=== PATIENT | female | born 1990 ===

== ENCOUNTER 2021-02-15 10:23 | Inpatient (IN) | payer BC ==
[2021-02-15] MEDS ORDERED: Sodium Chloride 0.9% 10 ML Syringe FLUSH PRN (11:52)
[2021-02-15] MEDS ORDERED: Sodium Chloride 0.9% 2.5 ML Syringe FLUSH PRN (11:52)
[2021-02-15] MEDS ORDERED: Ketorolac 30 MG/ML SDV IVPUSH ONE (11:52)
[2021-02-15] MEDS ORDERED: REMDESIVIR 200 MG in Sodium Chloride 0.9% 250 ML IV ONE ×2 (12:03→12:30)
[2021-02-15] MEDS ORDERED: Dexamethasone 10 MG/ML SDV IVPUSH ONE (12:03)
--- NOTE | 2021-02-15 12:08 | EDM.PDOC ---
ED HPI GENERAL MEDICAL PROBLEM - General Chief Complaint: Respiratory Problem Stated Complaint: SOB,FEVER Time Seen by Provider: 02/15/21 11:28 Source of Information: Reports: Patient History Limitations: Reports: No Limitations - History of Present Illness INITIAL COMMENTS - FREE TEXT/NARRATIVE: HISTORY AND PHYSICAL: History of present illness: Patient is a 30-year-old female who presents to the emergency room with complaints of increased shortness of breath, fever, headache and fatigue since being diagnosed with COVID-19 ten days ago (02/05/21). She states she has been taking Tylenol and [id number] cough and cold medications for her headache but feels she is not getting much relief. Patient denies any chills, change in vision, syncope or near syncope. Denies any chest pain, back pain, abdominal pain, nausea, vomiting, diarrhea, constipation or dysuria. Has not noted any blood in urine or stool. Patient has been eating and drinking appropriately. NO concern for . No recent travel or sick contacts. Review of systems: As per history of present illness and below otherwise all systems reviewed and negative. Past medical history: As per history of present illness and as reviewed below otherwise noncontributory. Surgical history: As per history of present illness and as reviewed below otherwise noncontributory. Social history: See social history for further information Family history: As per history of present illness and as reviewed below otherwise noncontributory. Physical exam: General: Well developed and well nourished 30 year old female. Alert and orientated x 3. Nontoxic in appearance and in no acute distress. Vital signs are stable and have been reviewed by me. Nursing notes were reviewed. HEENT: Atraumatic, normocephalic, pupils equal and reactive bilaterally, negative for conjunctival pallor or scleral icterus, mucous membranes moist, nontender, trachea midline. No drooling or trismus noted. No meningeal signs. No hot potato voice noted. Lungs: Diminished with poor air exchange to auscultation bilaterally. Chest nontender. Normal work of breathing, no accessory muscles used. Heart: S1S2, regular rate and rhythm without overt murmur, gallops, or rubs. No JVD. No peripheral edema Abdomen: Soft, nondistended, nontender. Normoactive bowel sounds. Negative for masses or costovertebral tenderness. Skin: Intact, warm, dry. No lesions or rashes noted. Hematologic: No petechiae or purpra. Mucosa appropriate color and normal nail bed color and refill. Extremities: Atraumatic, moves all extremities per self without difficulty or deficits, negative for cords or calf pain. Neurovascular unremarkable. Neuro: Awake, alert, oriented. Cranial nerves II through XII unremarkable. Cerebellum unremarkable. Motor and sensory unremarkable throughout. Exam nonfocal. Psychiatric: Mood and affect are appropriate. Normal thought process. Answering questions appropriately. Please note that the patient was seen and evaluated during the 2019 SARS-CoV-2 novel coronavirus pandemic period. Community viral transmission is ongoing at time of this encounter and the emergency department is operating under pandemic response procedures. Medical Decision Making: Patient is a 30-year-old female who presents to the emergency room with known COVID-19 who complains of subjective fever, headache, shortness of breath and fatigue. She states she has had symptoms for approximately 10 to 12 days and is not feeling any improvement. Upon arrival her oxygen saturation is 85% requiring 5 L per nasal cannula to be above 90%. I did talk with the patient about her expectations and that she would likely need admission for oxygen does not improve. Patient is aware and agreeable to plan of care. We will do basic lab work and blood cultures/lactate as she does fall and or sepsis criteria. Did have to switch patient to high flow oxygen and she was not satting above 90% on the nasal cannula. Chest x-ray shows shallow inspiration and patchy rounded infiltrate scattered throughout both lungs. Patient does have an elevated blood sugar of 294, she states she has no history of diabetes we will add a hemoglobin A1c onto her lab work. Patient does have an elevated D-dimer which could be due to the COVID-19 infection but will do a PE study. Spoke with Dr. Venegas, hospitalist about patient who is agreeable to keeping her for further care and management. I have talked with the patient about today's findings, in addition to providing specific details for plan of care. Patient states she does feel improved with the high flow oxygen and is requesting a meal tray. VSS. Results of CT scan pending. CT chest shows suboptimal opacification of the pulmonary arterial tree, limiting assessment of the distal branches. No central pulmonary embolism. Advanced bilateral pulmonary disease with pattern compatible with COVID-19 pneumonia. Hepatic steatosis and splenomegaly. Diagnostics: CBC, CMP, D.Dimer, UA, HCGU, CXR, Lactate, BC x 2 Therapeutics: Remdesivir, Decadron Impression: Hypoxia COVID19 Plan: Inpatient admission with telemetry Definitive disposition and diagnosis as appropriate pending reevaluation and delonte juárez of above. Headache Pain Score (Numeric/FACES): 10 - Related Data Allergies Allergy/AdvReac Type Severity Reaction Status Date / Time No Known Allergies Allergy Verified 02/15/21 15:36 Home Meds: Home Meds . [No Known Home Meds] 02/15/21 [History] ED ROS GENERAL - Review of Systems Review Of Systems: Comprehensive ROS is negative, except as noted in HPI. ED EXAM, GENERAL - Physical Exam Exam: See Below (See dictation) Course - Vital Signs Last Recorded V/S: Last Vital Signs Temp 97.2 F 02/15/21 15:35 Pulse 98 02/15/21 15:35 Resp 22 H 02/15/21 15:35 BP 108/66 02/15/21 15:35 Pulse Ox 93 L 02/15/21 17:43 - Orders/Labs/Meds Orders: Active Orders 24 hr Category Date Time Status Oxygen Therapy, ED [RC] ASDIRECTED Care 02/15/21 12:03 Active CULTURE BLOOD [BC] Stat Lab 02/15/21 12:02 Received CULTURE BLOOD [BC] Stat Lab 02/15/21 12:29 Received HCG QUALITATIVE,URINE [URCHEM] Stat Lab 02/15/21 11:53 Ordered UA RFX ITALIA AND CULT IF INDIC [URIN] Stat Lab 02/15/21 11:53 Ordered Sodium Chloride 0.9% [Saline Flush] Med 02/15/21 11:52 Active 10 ml FLUSH ASDIRECTED PRN Sodium Chloride 0.9% [Saline Flush] Med 02/15/21 11:52 Active 2.5 ml FLUSH ASDIRECTED PRN Blood Culture x2 Reflex Set [OM.PC] Stat Oth 02/15/21 11:54 Ordered Saline Lock Insert [OM.PC] Stat Oth 02/15/21 11:52 Ordered Medication Orders Albuterol/Ipratropium (Albuterol/Ipratropium 4 Gm Inhalation [place]) 0 gm INH QID JAYMIE Baricitinib (Baricitinib 2 Mg Tab) 4 mg PO Q24H JAYMIE Last Admin: 02/15/21 16:43 Dose: 4 mg Documented by: LUX Benzonatate (Benzonatate 100 Mg Cap) 100 mg PO Q6H PRN PRN Reason: Cough Dexamethasone (Dexamethasone 4 Mg Tab) 6 mg PO Q24H [facility] Enoxaparin Sodium (Enoxaparin 40 Mg/0.4 Ml Syringe) 40 mg SUBCUT Q24H [facility] Last Admin: 02/15/21 16:43 Dose: 40 mg Documented by: LUX Remdesivir 100 mg/ Sodium (Chloride) 100 mls @ 100 mls/hr IV Q24H [facility] Stop: 02/19/21 12:59 Sodium Chloride (Sodium Chloride 0.9% 10 Ml Syringe) 10 ml FLUSH ASDIRECTED PRN PRN Reason: Keep Vein Open Last Admin: 02/15/21 12:31 Dose: 10 ml Documented by: ZAHRA Sodium Chloride (Sodium Chloride 0.9% 2.5 Ml Syringe) 2.5 ml FLUSH ASDIRECTED PRN PRN Reason: Keep Vein Open Last Admin: 02/15/21 12:31 Dose: 2.5 ml Documented by: ZAHRA Labs: Laboratory Tests 02/15/21 02/15/21 02/15/21 Range/Units 12:02 12:02 12:02 WBC 8.13 (4.0-11.0) K/uL RBC 4.61 (4.30-5.90) M/uL Hgb 14.5 (12.0-16.0) g/dL Hct 41.7 (36.0-46.0) % MCV 90.5 (80.0-98.0) fL MCH 31.5 (27.0-32.0) pg MCHC 34.8 (31.0-37.0) g/dL RDW Std Deviation 41.6 (28.0-62.0) fl RDW Coeff of Arcenio 13 (11.0-15.0) % Plt Count 226 (150-400) K/uL MPV 9.70 (7.40-12.00) fL Neut % (Auto) 86.2 H (48.0-80.0) % Lymph % (Auto) 10.1 L (16.0-40.0) % [place] % (Auto) 3.6 (0.0-15.0) % Eos % (Auto) 0.0 (0.0-7.0) % Baso % (Auto) 0.1 (0.0-1.5) % Neut # (Auto) 7.0 H (1.4-5.7) K/uL Lymph # (Auto) 0.8 (0.6-2.4) K/uL [place] # (Auto) 0.3 (0.0-0.8) K/uL Eos # (Auto) 0.0 (0.0-0.7) K/uL Baso # (Auto) 0.0 (0.0-0.1) K/uL Nucleated RBC % 0.0 /100WBC Nucleated RBCs # 0 K/uL D-Dimer, Quantitative 1.26 H (0.0-0.50) mg/L FEU Sodium 132 L (136-145) mmol/L Potassium 3.6 (3.5-5.1) mmol/L Chloride 92 L (98-107) mmol/L Carbon Dioxide 27.4 (21.0-32.0) mmol/L BUN 12 (7.0-18.0) mg/dL Creatinine 1.0 (0.6-1.0) mg/dL Est Cr Clr Drug Dosing 84.49 mL/min Estimated GFR (MDRD) > 60.0 ml/min Glucose 294 H (74-106) mg/dL Hemoglobin A1c (4.5 - 6.2) % Lactic Acid (0.4-2.0) mmol/L Calcium 8.7 (8.5-10.1) mg/dL Total Bilirubin 0.6 (0.2-1.0) mg/dL AST 50 H (15-37) IU/L ALT 48 (14-63) IU/L Alkaline Phosphatase 61 (46-116) U/L C-Reactive Protein (0.00-0.90) mg/dL Total Protein 8.5 H (6.4-8.2) g/dL Albumin 2.7 L (3.4-5.0) g/dL Globulin 5.8 H (2.6-4.0) g/dL Albumin/Globulin Ratio 0.5 L (0.9-1.6) 02/15/21 02/15/21 02/15/21 Range/Units 12:02 12:02 12:02 WBC (4.0-11.0) K/uL RBC (4.30-5.90) M/uL Hgb (12.0-16.0) g/dL Hct (36.0-46.0) % MCV (80.0-98.0) fL MCH (27.0-32.0) pg MCHC (31.0-37.0) g/dL RDW Std Deviation (28.0-62.0) fl RDW Coeff of Arcenio (11.0-15.0) % Plt Count (150-400) K/uL MPV (7.40-12.00) fL Neut % (Auto) (48.0-80.0) % Lymph % (Auto) (16.0-40.0) % [place] % (Auto) (0.0-15.0) % Eos % (Auto) (0.0-7.0) % Baso % (Auto) (0.0-1.5) % Neut # (Auto) (1.4-5.7) K/uL Lymph # (Auto) (0.6-2.4) K/uL [place] # (Auto) (0.0-0.8) K/uL Eos # (Auto) (0.0-0.7) K/uL Baso # (Auto) (0.0-0.1) K/uL Nucleated RBC % /100WBC Nucleated RBCs # K/uL D-Dimer, Quantitative (0.0-0.50) mg/L FEU Sodium (136-145) mmol/L Potassium (3.5-5.1) mmol/L Chloride (98-107) mmol/L Carbon Dioxide (21.0-32.0) mmol/L BUN (7.0-18.0) mg/dL Creatinine (0.6-1.0) mg/dL Est Cr Clr Drug Dosing mL/min Estimated GFR (MDRD) ml/min Glucose (74-106) mg/dL Hemoglobin A1c 11.0 H (4.5 - 6.2) % Lactic Acid 1.8 (0.4-2.0) mmol/L Calcium (8.5-10.1) mg/dL Total Bilirubin (0.2-1.0) mg/dL AST (15-37) IU/L ALT (14-63) IU/L Alkaline Phosphatase (46-116) U/L C-Reactive Protein 28.00 H (0.00-0.90) mg/dL Total Protein (6.4-8.2) g/dL Albumin (3.4-5.0) g/dL Globulin (2.6-4.0) g/dL Albumin/Globulin Ratio (0.9-1.6) Meds: Medications Generic Name Dose Route Start Last Admin Trade Name Sary PRN Reason Stop Dose Admin Albuterol/Ipratropium 0 gm 02/15/21 18:00 Albuterol/Ipratropium 4 Gm Inhalation [place] INH QID JAYMIE Baricitinib 4 mg 02/15/21 15:45 02/15/21 16:43 Baricitinib 2 Mg Tab PO 4 mg Q24H JAYMIE Administration Benzonatate 100 mg 02/15/21 15:42 Benzonatate 100 Mg Cap PO Q6H PRN Cough Dexamethasone 6 mg 02/16/21 15:45 Dexamethasone 4 Mg Tab PO Q24H JAYMIE Enoxaparin Sodium 40 mg 02/15/21 15:45 02/15/21 16:43 Enoxaparin 40 Mg/0.4 Ml Syringe SUBCUT 40 mg Q24H JAYMIE Administration Remdesivir 100 mg/ Sodium 100 mls @ 100 mls/hr 02/16/21 12:00 Chloride IV 02/19/21 12:59 Q24H JAYMIE Sodium Chloride 10 ml 02/15/21 11:52 02/15/21 12:31 Sodium Chloride 0.9% 10 Ml Syringe FLUSH 10 ml ASDIRECTED PRN Administration Keep Vein Open Sodium Chloride 2.5 ml 02/15/21 11:52 02/15/21 12:31 Sodium Chloride 0.9% 2.5 Ml Syringe FLUSH 2.5 ml ASDIRECTED PRN Administration Keep Vein Open Discontinued Medications Generic Name Dose Route Start Last Admin Trade Name Sary PRN Reason Stop Dose Admin Dexamethasone 6 mg 02/15/21 12:03 02/15/21 12:30 Dexamethasone 10 Mg/Ml Sdv IVPUSH 02/15/21 12:04 6 mg ONETIME ONE Administration Remdesivir 200 mg/ Sodium 250 mls @ 250 mls/hr 02/15/21 12:03 02/15/21 14:02 Chloride IV 02/15/21 12:04 Not Given ONETIME ONE Remdesivir 200 mg/ Sodium 250 mls @ 250 mls/hr 02/15/21 12:30 02/15/21 14:01 Chloride IV 02/15/21 13:29 250 mls/hr ONETIME ONE Administration Iopamidol 100 ml 02/15/21 15:47 02/15/21 15:48 Iopamidol 755 Mg/Ml 500 Ml Multipack Bottle IVPUSH 02/15/21 15:48 100 ml ONETIME ONE Administration Ketorolac Tromethamine 30 mg 02/15/21 11:52 02/15/21 12:31 Ketorolac 30 Mg/Ml Sdv IVPUSH 02/15/21 11:53 30 mg ONETIME ONE Administration Departure - Departure Time of Disposition: 18:05 Disposition: Admitted As Inpatient 68 Clinical Impression: Hypoxia, COVID-19 - Discharge Information Sepsis Event Note (ED) - Focused Exam Vital Signs: Vital Signs Temp Pulse Resp BP Pulse Ox 02/15/21 12:13 115 H 16 118/75 89 L 02/15/21 12:07 98.7 F 118 H 17 118/75 88 L - My Orders Last 24 Hours: My Active Orders 02/15/21 11:52 Sodium Chloride 0.9% [Saline Flush] 10 ml FLUSH ASDIRECTED PRN Sodium Chloride 0.9% [Saline Flush] 2.5 ml FLUSH ASDIRECTED PRN Saline Lock Insert [OM.PC] Stat 02/15/21 11:53 HCG QUALITATIVE,URINE [URCHEM] Stat UA RFX ITALIA AND CULT IF INDIC [URIN] Stat 02/15/21 11:54 Blood Culture x2 Reflex Set [OM.PC] Stat 02/15/21 12:02 CULTURE BLOOD [BC] Stat 02/15/21 12:03 Oxygen Therapy, ED [RC] ASDIRECTED 02/15/21 12:29 CULTURE BLOOD [BC] Stat - Assessment/Plan Last 24 Hours: My Active Orders 02/15/21 11:52 Sodium Chloride 0.9% [Saline Flush] 10 ml FLUSH ASDIRECTED PRN Sodium Chloride 0.9% [Saline Flush] 2.5 ml FLUSH ASDIRECTED PRN Saline Lock Insert [OM.PC] Stat 02/15/21 11:53 HCG QUALITATIVE,URINE [URCHEM] Stat UA RFX ITALIA AND CULT IF INDIC [URIN] Stat 02/15/21 11:54 Blood Culture x2 Reflex Set [OM.PC] Stat 02/15/21 12:02 CULTURE BLOOD [BC] Stat 02/15/21 12:03 Oxygen Therapy, ED [RC] ASDIRECTED 02/15/21 12:29 CULTURE BLOOD [BC] Stat
[2021-02-15 12:52] LABS: BLOOD UREA NITROGEN,BUN 12 mg/dL (7.0-18.0); CARBON DIOXIDE,CO2 27.4 mmol/L (21.0-32.0); CHLORIDE,CL 92 mmol/L (98-107); GLUCOSE RANDOM 294 mg/dL (74-106); POTASSIUM,K 3.6 mmol/L (3.5-5.1); SODIUM,NA 132 mmol/L (136-145)
--- NOTE | 2021-02-15 12:59 | CR ---
INDICATION: SOB. TECHNIQUE: Upright portable AP image of the chest. COMPARISON: None. FINDINGS: Shallow inspiration and patchy rounded infiltrates scattered throughout both lungs. No pleural effusion. Heart size within normal limits. Pulmonary veins cannot be assessed due to the shallow inspiration. No significant bony abnormality. IMPRESSION: Shallow inspiration and patchy rounded infiltrate scattered throughout both lungs. Dictated by Kal Villalba MD @ 02/15/2021 12:57:50 PM (Electronically Signed)
--- NOTE | 2021-02-15 15:41 | CT ---
INDICATION: COVID, hypoxia, elevated D-dimer TECHNIQUE: Contrast enhanced axial CT imaging through the chest, optimized for assessment of the pulmonary arterial tree. 100 mL Isovue 370 contrast agent was administered intravenously. Sagittal and coronal reconstructions are provided. COMPARISON: None FINDINGS: There is suboptimal opacification of the pulmonary arterial tree, limiting assessment of distal branches. There is no evidence of central pulmonary embolism. The main pulmonary artery is nonenlarged. The heart is normal in size. There is no pericardial effusion. The thoracic aorta is normal in caliber. There are confluent pulmonary infiltrates throughout both lungs, with greater involvement of the dependent lower lobes. Findings are compatible with changes of COVID-19 pneumonia. There is no pleural effusion or pneumothorax. Mild mediastinal lymphadenopathy is presumably reactive. The thoracic osseous structures are unremarkable. There is diffusely decreased attenuation of the visualized liver, consistent with steatosis. The spleen is enlarged. IMPRESSION: 1. Suboptimal opacification of the pulmonary arterial tree, limiting assessment of the distal branches. No central pulmonary embolism. 2. Advanced bilateral pulmonary disease with pattern compatible with COVID-19 pneumonia. 3. Hepatic steatosis and splenomegaly. Please note that all CT scans at this facility use dose modulation, iterative reconstruction, and/or weight-based dosing when appropriate to reduce radiation dose to as low as reasonably achievable. Dictated by Shukri Hernández MD @ 02/15/2021 3:39:28 PM (Electronically Signed)
[2021-02-15] MEDS ORDERED: Benzonatate 100 MG Cap PO PRN (15:42)
[2021-02-15] MEDS ORDERED: Iopamidol 755 MG/ML 500 ML Multipack Bottle IVPUSH ONE (15:47)
--- NOTE | 2021-02-15 16:20 | PCM.HP.2 ---
H&P History of Present Illness - General Date of Service: 02/15/21 Admit Problem/Dx: Admission Diagnosis/Problem Admission Diagnosis/Problem Hypoxia - History of Present Illness Initial Comments - Free Text/Narative: 30 yo female who presents with ten days of cough, fevers, and shortness of breath. She tested positive for COVID last week. She was noted to be hypoxic in the ED requiring high flow NC. Headache Pain Score (Numeric/FACES): 10 - Related Data Allergies/Adverse Reactions: Allergies Allergy/AdvReac Type Severity Reaction Status Date / Time No Known Allergies Allergy Verified 02/15/21 15:36 Home Medications: Home Meds . [No Known Home Meds] 02/15/21 [History] Past Medical History - Past Health History Medical/Surgical History: Denies Medical/Surgical History Social & Family History - Family History Family Medical History: No Pertinent Family History - Recreational Drug Use Recreational Drug Use: No H&P Review of Systems - Review of Systems: Review Of Systems: Comprehensive ROS is negative, except as noted in HPI. Exam - Exam Exam: See Below - Vital Signs Vital Signs: Last Vital Signs Temp 36.2 C 02/15/21 15:35 Pulse 98 02/15/21 15:35 Resp 22 H 02/15/21 15:35 BP 108/66 02/15/21 15:35 Pulse Ox 92 L 02/15/21 15:35 Weight: 117.435 kg - Exam General: Alert, Oriented. No: Mild Distress (appears comfortable on HHFNC) Lungs: Clear to Auscultation, Normal Respiratory Effort Cardiovascular: Regular Rate, Regular Rhythm GI/Abdominal Exam: Normal Bowel Sounds, Soft, Non-Tender Extremities: Non-Tender, No Pedal Edema Skin: Warm, Dry, Intact Neurological: No: Focal Deficit - Patient Data Lab Results Last 24 hrs: Laboratory Results - last 24 hr 02/15/21 02/15/21 02/15/21 Range/Units 12:02 12:02 12:02 WBC 8.13 (4.0-11.0) K/uL RBC 4.61 (4.30-5.90) M/uL Hgb 14.5 (12.0-16.0) g/dL Hct 41.7 (36.0-46.0) % MCV 90.5 (80.0-98.0) fL MCH 31.5 (27.0-32.0) pg MCHC 34.8 (31.0-37.0) g/dL RDW Std Deviation 41.6 (28.0-62.0) fl RDW Coeff of Arcenio 13 (11.0-15.0) % Plt Count 226 (150-400) K/uL MPV 9.70 (7.40-12.00) fL Neut % (Auto) 86.2 H (48.0-80.0) % Lymph % (Auto) 10.1 L (16.0-40.0) % [place] % (Auto) 3.6 (0.0-15.0) % Eos % (Auto) 0.0 (0.0-7.0) % Baso % (Auto) 0.1 (0.0-1.5) % Neut # (Auto) 7.0 H (1.4-5.7) K/uL Lymph # (Auto) 0.8 (0.6-2.4) K/uL [place] # (Auto) 0.3 (0.0-0.8) K/uL Eos # (Auto) 0.0 (0.0-0.7) K/uL Baso # (Auto) 0.0 (0.0-0.1) K/uL Nucleated RBC % 0.0 /100WBC Nucleated RBCs # 0 K/uL D-Dimer, Quantitative 1.26 H (0.0-0.50) mg/L FEU Sodium 132 L (136-145) mmol/L Potassium 3.6 (3.5-5.1) mmol/L Chloride 92 L (98-107) mmol/L Carbon Dioxide 27.4 (21.0-32.0) mmol/L BUN 12 (7.0-18.0) mg/dL Creatinine 1.0 (0.6-1.0) mg/dL Est Cr Clr Drug Dosing 84.49 mL/min Estimated GFR (MDRD) > 60.0 ml/min Glucose 294 H (74-106) mg/dL Hemoglobin A1c (4.5 - 6.2) % Lactic Acid (0.4-2.0) mmol/L Calcium 8.7 (8.5-10.1) mg/dL Total Bilirubin 0.6 (0.2-1.0) mg/dL AST 50 H (15-37) IU/L ALT 48 (14-63) IU/L Alkaline Phosphatase 61 (46-116) U/L C-Reactive Protein (0.00-0.90) mg/dL Total Protein 8.5 H (6.4-8.2) g/dL Albumin 2.7 L (3.4-5.0) g/dL Globulin 5.8 H (2.6-4.0) g/dL Albumin/Globulin Ratio 0.5 L (0.9-1.6) 02/15/21 02/15/21 02/15/21 Range/Units 12:02 12:02 12:02 WBC (4.0-11.0) K/uL RBC (4.30-5.90) M/uL Hgb (12.0-16.0) g/dL Hct (36.0-46.0) % MCV (80.0-98.0) fL MCH (27.0-32.0) pg MCHC (31.0-37.0) g/dL RDW Std Deviation (28.0-62.0) fl RDW Coeff of Arcenio (11.0-15.0) % Plt Count (150-400) K/uL MPV (7.40-12.00) fL Neut % (Auto) (48.0-80.0) % Lymph % (Auto) (16.0-40.0) % [place] % (Auto) (0.0-15.0) % Eos % (Auto) (0.0-7.0) % Baso % (Auto) (0.0-1.5) % Neut # (Auto) (1.4-5.7) K/uL Lymph # (Auto) (0.6-2.4) K/uL [place] # (Auto) (0.0-0.8) K/uL Eos # (Auto) (0.0-0.7) K/uL Baso # (Auto) (0.0-0.1) K/uL Nucleated RBC % /100WBC Nucleated RBCs # K/uL D-Dimer, Quantitative (0.0-0.50) mg/L FEU Sodium (136-145) mmol/L Potassium (3.5-5.1) mmol/L Chloride (98-107) mmol/L Carbon Dioxide (21.0-32.0) mmol/L BUN (7.0-18.0) mg/dL Creatinine (0.6-1.0) mg/dL Est Cr Clr Drug Dosing mL/min Estimated GFR (MDRD) ml/min Glucose (74-106) mg/dL Hemoglobin A1c 11.0 H (4.5 - 6.2) % Lactic Acid 1.8 (0.4-2.0) mmol/L Calcium (8.5-10.1) mg/dL Total Bilirubin (0.2-1.0) mg/dL AST (15-37) IU/L ALT (14-63) IU/L Alkaline Phosphatase (46-116) U/L C-Reactive Protein 28.00 H (0.00-0.90) mg/dL Total Protein (6.4-8.2) g/dL Albumin (3.4-5.0) g/dL Globulin (2.6-4.0) g/dL Albumin/Globulin Ratio (0.9-1.6) Result Diagrams: 02/15/21 12:02 02/15/21 12:02 Sepsis Event Note - Evaluation Sepsis Screening Result: No Definite Risk - Focused Exam Vital Signs: Vital Signs Temp Pulse Resp BP Pulse Ox 02/15/21 15:35 36.2 C 98 22 H 108/66 92 L 02/15/21 14:13 82 17 154/80 H 99 02/15/21 14:01 111 H 14 115/64 94 L 02/15/21 12:52 110 H 18 108/68 94 L 02/15/21 12:13 115 H 16 118/75 89 L 02/15/21 12:07 37.1 C 118 H 17 118/75 88 L - Problem List (1) COVID-19 SNOMED Code(s): 455841395 ICD Code: U07.1 - COVID-19 Status: Acute Current Visit: Yes Problem List Initiated/Reviewed/Updated: Yes Orders Last 24hrs: Active Orders 24 hr Category Date Time Status Admission Status [Patient Status] [ADT] Stat ADT 02/15/21 12:29 Active Cardiac Monitoring [RC] . DIRECTED Care 02/15/21 12:29 Active Oxygen Therapy [RC] PRN Care 02/15/21 15:43 Active Oxygen Therapy, ED [RC] ASDIRECTED Care 02/15/21 12:03 Active RT Post Treatment Assessment [RC] Click to Edit Care 02/15/21 15:42 Active RT Pre-Treatment Assessment [RC] Click to Edit Care 02/15/21 15:42 Active Up ad [place]is [RC] ASDIRECTED Care 02/15/21 15:43 Active VTE/DVT Education [RC] PER UNIT ROUTINE Care 02/15/21 15:43 Active Vital Signs [RC] Q4H Care 02/15/21 15:43 Active Regular Diet [DIET] Diet 02/15/21 Breakfast Active CBC WITH AUTO DIFF [HEME] AM Lab 02/16/21 05:11 Ordered CBC WITH AUTO DIFF [HEME] AM Lab 02/17/21 05:11 Ordered CBC WITH AUTO DIFF [HEME] AM Lab 02/18/21 05:11 Ordered CBC WITH AUTO DIFF [HEME] AM Lab 02/19/21 05:11 Ordered CBC WITH AUTO DIFF [HEME] AM Lab 02/20/21 05:11 Ordered COMPREHENSIVE METABOLIC PN,CMP [CHEM] AM Lab 02/16/21 05:11 Ordered COMPREHENSIVE METABOLIC PN,CMP [CHEM] AM Lab 02/17/21 05:11 Ordered COMPREHENSIVE METABOLIC PN,CMP [CHEM] AM Lab 02/18/21 05:11 Ordered COMPREHENSIVE METABOLIC PN,CMP [CHEM] AM Lab 02/19/21 05:11 Ordered COMPREHENSIVE METABOLIC PN,CMP [CHEM] AM Lab 02/20/21 05:11 Ordered CULTURE BLOOD [BC] Stat Lab 02/15/21 12:02 Received CULTURE BLOOD [BC] Stat Lab 02/15/21 12:29 Received HCG QUALITATIVE,URINE [URCHEM] Stat Lab 02/15/21 11:53 Ordered UA RFX ITALIA AND CULT IF INDIC [URIN] Stat Lab 02/15/21 11:53 Ordered Albuterol/Ipratropium [Combivent Respimat] Med 02/15/21 18:00 Ordered 1 gm INH QID Baricitinib [Olumiant] Med 02/15/21 15:45 Ordered 4 mg PO Q24H Benzonatate [Tessalon Perles] Med 02/15/21 15:42 Ordered 100 mg PO Q6H PRN Enoxaparin [Lovenox] Med 02/15/21 15:45 Ordered 40 mg SUBCUT Q24H Remdesivir 100 mg Med 02/16/21 12:00 Ordered Sodium Chloride 0.9% [Normal Saline AdvBag] 100 ml IV Q24H Sodium Chloride 0.9% [Saline Flush] Med 02/15/21 11:52 Active 10 ml FLUSH ASDIRECTED PRN Sodium Chloride 0.9% [Saline Flush] Med 02/15/21 11:52 Active 2.5 ml FLUSH ASDIRECTED PRN dexAMETHasone Med 02/16/21 15:45 Ordered 6 mg PO Q24H Blood Culture x2 Reflex Set [OM.PC] Stat Oth 02/15/21 11:54 Ordered Saline Lock Insert [OM.PC] Stat Oth 02/15/21 11:52 Ordered Resuscitation Status Routine Resus Stat 02/15/21 15:43 Ordered Medication Orders Albuterol/Ipratropium (Albuterol/Ipratropium 4 Gm Inhalation [place]) 1 gm INH QID JAYMIE Baricitinib (Baricitinib 2 Mg Tab) 4 mg PO Q24H JAYMIE Benzonatate (Benzonatate 100 Mg Cap) 100 mg PO Q6H PRN PRN Reason: Cough Dexamethasone (Dexamethasone 4 Mg Tab) 6 mg PO Q24H JAYMIE Enoxaparin Sodium (Enoxaparin 40 Mg/0.4 Ml Syringe) 40 mg SUBCUT Q24H JAYMIE Remdesivir 100 mg/ Sodium (Chloride) 100 mls @ 100 mls/hr IV Q24H [facility] Stop: 02/19/21 12:59 Sodium Chloride (Sodium Chloride 0.9% 10 Ml Syringe) 10 ml FLUSH ASDIRECTED PRN PRN Reason: Keep Vein Open Last Admin: 02/15/21 12:31 Dose: 10 ml Documented by: ZAHRA Sodium Chloride (Sodium Chloride 0.9% 2.5 Ml Syringe) 2.5 ml FLUSH ASDIRECTED PRN PRN Reason: Keep Vein Open Last Admin: 02/15/21 12:31 Dose: 2.5 ml Documented by: ZAHRA Assessment/Plan Comment:: 30 yo female admitted for COVID-19 pneumonia with acute hypoxic respiratory failure Hypoxia: on HHFNC 40 L at 75% O2 COVID-19: Treating with Remdesivir, Dexamethason, and patient consented to use of barcitinib lovenox for DVT prophylaxis.
[2021-02-15] MEDS: Enoxaparin 40 MG/0.4 ML Syringe SUBCUT SCH (16:43)
[2021-02-15] MEDS: Albuterol/Ipratropium 4 GM Inhalation Spray INH SCH ×2 (18:32→23:33)
[2021-02-15] MEDS ORDERED: 50% Dextrose in Water 50 ML Syringe IVPUSH PRN ×2 (20:49→21:38)
[2021-02-15] MEDS ORDERED: Glucagon,Human Recombinant 1 MG Vial IM PRN ×2 (20:49→21:38)
[2021-02-15] MEDS ORDERED: Insulin Aspart 100 Units/ML 3 ML Pen ONE (21:43)
[2021-02-15] MEDS ORDERED: Insulin Aspart 100 Units/ML 3 ML Pen SUBCUT ONE (21:50)
[2021-02-16] MEDS: Insulin Aspart 100 Units/ML 3 ML Pen SUBCUT SCH ×4 (00:34→18:11)
[2021-02-16] MEDS: Albuterol/Ipratropium 4 GM Inhalation Spray INH SCH ×4 (06:52→23:35)
[2021-02-16 08:07] LABS: BLOOD UREA NITROGEN,BUN 17 mg/dL (7.0-18.0); CARBON DIOXIDE,CO2 28.7 mmol/L (21.0-32.0); CHLORIDE,CL 97 mmol/L (98-107); GLUCOSE RANDOM 329 mg/dL (74-106); POTASSIUM,K 3.6 mmol/L (3.5-5.1); SODIUM,NA 136 mmol/L (136-145)
[2021-02-16] MEDS: REMDESIVIR 100 MG in Sodium Chloride 0.9% 100 ML IV SCH (12:30)
--- NOTE | 2021-02-16 15:54 | PCM.PN ---
- General Info Date of Service: 02/16/21 - Review of Systems Systems Review Comment:: feeling better, shortness of breath improving - Patient Data Vitals - Most Recent: Last Vital Signs Temp 36.4 C 02/16/21 11:00 Pulse 96 02/16/21 11:00 Resp 18 02/16/21 11:00 BP 109/63 02/16/21 11:00 Pulse Ox 89 L 02/16/21 11:00 Weight - Most Recent: 117.435 kg I&O - Last 24 Hours: Intake & Output 02/16/21 02/16/21 02/16/21 06:59 14:59 22:59 Intake Total 840 Output Total 650 Balance 190 Lab Results Last 24 Hours: Laboratory Results - last 24 hr 02/15/21 02/15/21 02/15/21 Range/Units 21:10 21:10 21:23 WBC (4.0-11.0) K/uL RBC (4.30-5.90) M/uL Hgb (12.0-16.0) g/dL Hct (36.0-46.0) % MCV (80.0-98.0) fL MCH (27.0-32.0) pg MCHC (31.0-37.0) g/dL RDW Std Deviation (28.0-62.0) fl RDW Coeff of Arcenio (11.0-15.0) % Plt Count (150-400) K/uL MPV (7.40-12.00) fL Neut % (Auto) (48.0-80.0) % Lymph % (Auto) (16.0-40.0) % [place] % (Auto) (0.0-15.0) % Eos % (Auto) (0.0-7.0) % Baso % (Auto) (0.0-1.5) % Neut # (Auto) (1.4-5.7) K/uL Lymph # (Auto) (0.6-2.4) K/uL [place] # (Auto) (0.0-0.8) K/uL Eos # (Auto) (0.0-0.7) K/uL Baso # (Auto) (0.0-0.1) K/uL Nucleated RBC % /100WBC Nucleated RBCs # K/uL Sodium (136-145) mmol/L Potassium (3.5-5.1) mmol/L Chloride (98-107) mmol/L Carbon Dioxide (21.0-32.0) mmol/L BUN (7.0-18.0) mg/dL Creatinine (0.6-1.0) mg/dL Est Cr Clr Drug Dosing mL/min Estimated GFR (MDRD) ml/min Glucose (74-106) mg/dL POC Glucose 440 H* (70-99) mg/dL Calcium (8.5-10.1) mg/dL Total Bilirubin (0.2-1.0) mg/dL AST (15-37) IU/L ALT (14-63) IU/L Alkaline Phosphatase (46-116) U/L Total Protein (6.4-8.2) g/dL Albumin (3.4-5.0) g/dL Globulin (2.6-4.0) g/dL Albumin/Globulin Ratio (0.9-1.6) Urine Color YELLOW Urine Appearance SLT CLOUDY Urine pH 6.0 (5.0-8.0) Ur Specific [place] 1.020 (1.001-1.035) Urine Protein 100 H (NEGATIVE) mg/dL Urine Glucose (UA) >=1000 (NEGATIVE) mg/dL Urine Ketones 15 H (NEGATIVE) mg/dL Urine Occult Blood TRACE-INTACT H (NEGATIVE) Urine Nitrite NEGATIVE (NEGATIVE) Urine Bilirubin NEGATIVE (NEGATIVE) Urine Urobilinogen 0.2 (<2.0) EU/dL Ur Leukocyte Esterase NEGATIVE (NEGATIVE) Urine RBC 0-2 (0-2/HPF) Urine WBC 0-2 (0-5/HPF) Ur Epithelial Cells FEW (NONE-FEW) Urine Bacteria FEW (NEGATIVE) Urine HCG, Qual NEGATIVE (NEGATIVE) 02/15/21 02/16/21 02/16/21 Range/Units 23:26 02:38 06:59 WBC 4.61 (4.0-11.0) K/uL RBC 4.32 (4.30-5.90) M/uL Hgb 13.0 (12.0-16.0) g/dL Hct 39.4 (36.0-46.0) % MCV 91.2 (80.0-98.0) fL MCH 30.1 (27.0-32.0) pg MCHC 33.0 (31.0-37.0) g/dL RDW Std Deviation 42.2 (28.0-62.0) fl RDW Coeff of Arcenio 13 (11.0-15.0) % Plt Count 263 (150-400) K/uL MPV 10.10 (7.40-12.00) fL Neut % (Auto) 68.1 (48.0-80.0) % Lymph % (Auto) 25.4 (16.0-40.0) % [place] % (Auto) 6.3 (0.0-15.0) % Eos % (Auto) 0.0 (0.0-7.0) % Baso % (Auto) 0.2 (0.0-1.5) % Neut # (Auto) 3.1 (1.4-5.7) K/uL Lymph # (Auto) 1.2 (0.6-2.4) K/uL [place] # (Auto) 0.3 (0.0-0.8) K/uL Eos # (Auto) 0.0 (0.0-0.7) K/uL Baso # (Auto) 0.0 (0.0-0.1) K/uL Nucleated RBC % 0.0 /100WBC Nucleated RBCs # 0 K/uL Sodium (136-145) mmol/L Potassium (3.5-5.1) mmol/L Chloride (98-107) mmol/L Carbon Dioxide (21.0-32.0) mmol/L BUN (7.0-18.0) mg/dL Creatinine (0.6-1.0) mg/dL Est Cr Clr Drug Dosing mL/min Estimated GFR (MDRD) ml/min Glucose (74-106) mg/dL POC Glucose 383 H 344 H (70-99) mg/dL Calcium (8.5-10.1) mg/dL Total Bilirubin (0.2-1.0) mg/dL AST (15-37) IU/L ALT (14-63) IU/L Alkaline Phosphatase (46-116) U/L Total Protein (6.4-8.2) g/dL Albumin (3.4-5.0) g/dL Globulin (2.6-4.0) g/dL Albumin/Globulin Ratio (0.9-1.6) Urine Color Urine Appearance Urine pH (5.0-8.0) Ur Specific [place] (1.001-1.035) Urine Protein (NEGATIVE) mg/dL Urine Glucose (UA) (NEGATIVE) mg/dL Urine Ketones (NEGATIVE) mg/dL Urine Occult Blood (NEGATIVE) Urine Nitrite (NEGATIVE) Urine Bilirubin (NEGATIVE) Urine Urobilinogen (<2.0) EU/dL Ur Leukocyte Esterase (NEGATIVE) Urine RBC (0-2/HPF) Urine WBC (0-5/HPF) Ur Epithelial Cells (NONE-FEW) Urine Bacteria (NEGATIVE) Urine HCG, Qual (NEGATIVE) 02/16/21 02/16/21 02/16/21 Range/Units 06:59 06:59 11:50 WBC (4.0-11.0) K/uL RBC (4.30-5.90) M/uL Hgb (12.0-16.0) g/dL Hct (36.0-46.0) % MCV (80.0-98.0) fL MCH (27.0-32.0) pg MCHC (31.0-37.0) g/dL RDW Std Deviation (28.0-62.0) fl RDW Coeff of Arcenio (11.0-15.0) % Plt Count (150-400) K/uL MPV (7.40-12.00) fL Neut % (Auto) (48.0-80.0) % Lymph % (Auto) (16.0-40.0) % [place] % (Auto) (0.0-15.0) % Eos % (Auto) (0.0-7.0) % Baso % (Auto) (0.0-1.5) % Neut # (Auto) (1.4-5.7) K/uL Lymph # (Auto) (0.6-2.4) K/uL [place] # (Auto) (0.0-0.8) K/uL Eos # (Auto) (0.0-0.7) K/uL Baso # (Auto) (0.0-0.1) K/uL Nucleated RBC % /100WBC Nucleated RBCs # K/uL Sodium 136 (136-145) mmol/L Potassium 3.6 (3.5-5.1) mmol/L Chloride 97 L (98-107) mmol/L Carbon Dioxide 28.7 (21.0-32.0) mmol/L BUN 17 (7.0-18.0) mg/dL Creatinine 0.8 (0.6-1.0) mg/dL Est Cr Clr Drug Dosing 105.61 mL/min Estimated GFR (MDRD) > 60.0 ml/min Glucose 329 H (74-106) mg/dL POC Glucose 332 H 386 H (70-99) mg/dL Calcium 8.4 L (8.5-10.1) mg/dL Total Bilirubin 0.4 (0.2-1.0) mg/dL AST 30 (15-37) IU/L ALT 34 (14-63) IU/L Alkaline Phosphatase 62 (46-116) U/L Total Protein 7.8 (6.4-8.2) g/dL Albumin 2.3 L (3.4-5.0) g/dL Globulin 5.5 H (2.6-4.0) g/dL Albumin/Globulin Ratio 0.4 L (0.9-1.6) Urine Color Urine Appearance Urine pH (5.0-8.0) Ur Specific [place] (1.001-1.035) Urine Protein (NEGATIVE) mg/dL Urine Glucose (UA) (NEGATIVE) mg/dL Urine Ketones (NEGATIVE) mg/dL Urine Occult Blood (NEGATIVE) Urine Nitrite (NEGATIVE) Urine Bilirubin (NEGATIVE) Urine Urobilinogen (<2.0) EU/dL Ur Leukocyte Esterase (NEGATIVE) Urine RBC (0-2/HPF) Urine WBC (0-5/HPF) Ur Epithelial Cells (NONE-FEW) Urine Bacteria (NEGATIVE) Urine HCG, Qual (NEGATIVE) Viktor Results Last 24 Hours: Microbiology 02/15/21 12:29 Aerobic Blood Culture - Preliminary Blood - Venous - Lab Draw NO GROWTH AFTER 1 DAY Anaerobic Blood Culture - Preliminary NO GROWTH AFTER 1 DAY 02/15/21 12:02 Aerobic Blood Culture - Preliminary Blood - Venous NO GROWTH AFTER 1 DAY Anaerobic Blood Culture - Preliminary NO GROWTH AFTER 1 DAY Med Orders - Current: Current Medications Albuterol/Ipratropium (Albuterol/Ipratropium 4 Gm Inhalation [place]) 0 gm INH QID JAYMIE Last Admin: 02/16/21 11:54 Dose: 1 puff Documented by: Baricitinib (Baricitinib 2 Mg Tab) 4 mg PO Q24H [facility] Last Admin: 02/15/21 16:43 Dose: 4 mg Documented by: Benzonatate (Benzonatate 100 Mg Cap) 100 mg PO Q6H PRN PRN Reason: Cough Dexamethasone (Dexamethasone 4 Mg Tab) 6 mg PO Q24H JAYMIE Dextrose/Water (50% Dextrose In Water 50 Ml Syringe) 50 ml IVPUSH ASDIRECTED PRN PRN Reason: Hypoglycemia Enoxaparin Sodium (Enoxaparin 40 Mg/0.4 Ml Syringe) 40 mg SUBCUT Q24H JAYMIE Last Admin: 02/15/21 16:43 Dose: 40 mg Documented by: Glucagon (Glucagon,Human Recombinant 1 Mg Vial) 1 mg IM ASDIRECTED PRN PRN Reason: Hypoglycemia Remdesivir 100 mg/ Sodium (Chloride) 100 mls @ 100 mls/hr IV Q24H JAYMIE Stop: 02/19/21 12:59 Last Admin: 02/16/21 12:30 Dose: 100 mls/hr Documented by: Insulin Aspart (Insulin Aspart 100 Units/Ml 3 Ml Pen) 0 unit SUBCUT TIDAC [facility]; Protocol Last Admin: 02/16/21 11:55 Dose: 5 units Documented by: Insulin Glargine (Insulin Glargine,Human Rec. Analog 100 Units/Ml 3 Ml Pen) 7 units SUBCUT BEDTIME [facility] Sodium Chloride (Sodium Chloride 0.9% 10 Ml Syringe) 10 ml FLUSH ASDIRECTED PRN PRN Reason: Keep Vein Open Last Admin: 02/15/21 12:31 Dose: 10 ml Documented by: Sodium Chloride (Sodium Chloride 0.9% 2.5 Ml Syringe) 2.5 ml FLUSH ASDIRECTED PRN PRN Reason: Keep Vein Open Last Admin: 02/15/21 12:31 Dose: 2.5 ml Documented by: Discontinued Medications Dexamethasone (Dexamethasone 10 Mg/Ml Sdv) 6 mg IVPUSH ONETIME ONE Stop: 02/15/21 12:04 Last Admin: 02/15/21 12:30 Dose: 6 mg Documented by: Dextrose/Water (50% Dextrose In Water 50 Ml Syringe) 50 ml IVPUSH ASDIRECTED PRN PRN Reason: Hypoglycemia Glucagon (Glucagon,Human Recombinant 1 Mg Vial) 1 mg IM ASDIRECTED PRN PRN Reason: Hypoglycemia Remdesivir 200 mg/ Sodium (Chloride) 250 mls @ 250 mls/hr IV ONETIME ONE Stop: 02/15/21 12:04 Last Admin: 02/15/21 14:02 Dose: Not Given Documented by: Remdesivir 200 mg/ Sodium (Chloride) 250 mls @ 250 mls/hr IV ONETIME ONE Stop: 02/15/21 13:29 Last Admin: 02/15/21 14:01 Dose: 250 mls/hr Documented by: Insulin Aspart (Insulin Aspart 100 Units/Ml 3 Ml Pen) 8 unit SUBCUT NOW ONE Stop: 02/15/21 21:51 Last Admin: 02/15/21 21:54 Dose: 8 units Documented by: Insulin Aspart (Insulin Aspart 100 Units/Ml 3 Ml Pen) Confirm Administered Dose 300 unit .ROUTE .STK-MED ONE Stop: 02/15/21 21:44 Last Admin: 02/15/21 22:09 Dose: Not Given Documented by: Iopamidol (Iopamidol 755 Mg/Ml 500 Ml Multipack Bottle) 100 ml IVPUSH ONETIME ONE Stop: 02/15/21 15:48 Last Admin: 02/15/21 15:48 Dose: 100 ml Documented by: Ketorolac Tromethamine (Ketorolac 30 Mg/Ml Sdv) 30 mg IVPUSH ONETIME ONE Stop: 02/15/21 11:53 Last Admin: 02/15/21 12:31 Dose: 30 mg Documented by: - Exam General: Alert, Oriented Lungs: Clear to Auscultation, Normal Respiratory Effort Cardiovascular: Regular Rate, Regular Rhythm GI/Abdominal Exam: Soft, Non-Tender, No Distention Extremities: Non-Tender, No Pedal Edema - Patient Data Lab Results Last 24 hrs: Laboratory Results - last 24 hr 02/15/21 02/15/21 02/15/21 Range/Units 21:10 21:10 21:23 WBC (4.0-11.0) K/uL RBC (4.30-5.90) M/uL Hgb (12.0-16.0) g/dL Hct (36.0-46.0) % MCV (80.0-98.0) fL MCH (27.0-32.0) pg MCHC (31.0-37.0) g/dL RDW Std Deviation (28.0-62.0) fl RDW Coeff of Arcenio (11.0-15.0) % Plt Count (150-400) K/uL MPV (7.40-12.00) fL Neut % (Auto) (48.0-80.0) % Lymph % (Auto) (16.0-40.0) % [place] % (Auto) (0.0-15.0) % Eos % (Auto) (0.0-7.0) % Baso % (Auto) (0.0-1.5) % Neut # (Auto) (1.4-5.7) K/uL Lymph # (Auto) (0.6-2.4) K/uL [place] # (Auto) (0.0-0.8) K/uL Eos # (Auto) (0.0-0.7) K/uL Baso # (Auto) (0.0-0.1) K/uL Nucleated RBC % /100WBC Nucleated RBCs # K/uL Sodium (136-145) mmol/L Potassium (3.5-5.1) mmol/L Chloride (98-107) mmol/L Carbon Dioxide (21.0-32.0) mmol/L BUN (7.0-18.0) mg/dL Creatinine (0.6-1.0) mg/dL Est Cr Clr Drug Dosing mL/min Estimated GFR (MDRD) ml/min Glucose (74-106) mg/dL POC Glucose 440 H* (70-99) mg/dL Calcium (8.5-10.1) mg/dL Total Bilirubin (0.2-1.0) mg/dL AST (15-37) IU/L ALT (14-63) IU/L Alkaline Phosphatase (46-116) U/L Total Protein (6.4-8.2) g/dL Albumin (3.4-5.0) g/dL Globulin (2.6-4.0) g/dL Albumin/Globulin Ratio (0.9-1.6) Urine Color YELLOW Urine Appearance SLT CLOUDY Urine pH 6.0 (5.0-8.0) Ur Specific [place] 1.020 (1.001-1.035) Urine Protein 100 H (NEGATIVE) mg/dL Urine Glucose (UA) >=1000 (NEGATIVE) mg/dL Urine Ketones 15 H (NEGATIVE) mg/dL Urine Occult Blood TRACE-INTACT H (NEGATIVE) Urine Nitrite NEGATIVE (NEGATIVE) Urine Bilirubin NEGATIVE (NEGATIVE) Urine Urobilinogen 0.2 (<2.0) EU/dL Ur Leukocyte Esterase NEGATIVE (NEGATIVE) Urine RBC 0-2 (0-2/HPF) Urine WBC 0-2 (0-5/HPF) Ur Epithelial Cells FEW (NONE-FEW) Urine Bacteria FEW (NEGATIVE) Urine HCG, Qual NEGATIVE (NEGATIVE) 02/15/21 02/16/21 02/16/21 Range/Units 23:26 02:38 06:59 WBC 4.61 (4.0-11.0) K/uL RBC 4.32 (4.30-5.90) M/uL Hgb 13.0 (12.0-16.0) g/dL Hct 39.4 (36.0-46.0) % MCV 91.2 (80.0-98.0) fL MCH 30.1 (27.0-32.0) pg MCHC 33.0 (31.0-37.0) g/dL RDW Std Deviation 42.2 (28.0-62.0) fl RDW Coeff of [place]en[place] 13 (11.0-15.0) % Plt Count 263 (150-400) K/uL MPV 10.10 (7.40-12.00) fL Neut % (Auto) 68.1 (48.0-80.0) % Lymph % (Auto) 25.4 (16.0-40.0) % [place] % (Auto) 6.3 (0.0-15.0) % Eos % (Auto) 0.0 (0.0-7.0) % Baso % (Auto) 0.2 (0.0-1.5) % Neut # (Auto) 3.1 (1.4-5.7) K/uL Lymph # (Auto) 1.2 (0.6-2.4) K/uL [place] # (Auto) 0.3 (0.0-0.8) K/uL Eos # (Auto) 0.0 (0.0-0.7) K/uL Baso # (Auto) 0.0 (0.0-0.1) K/uL Nucleated RBC % 0.0 /100WBC Nucleated RBCs # 0 K/uL Sodium (136-145) mmol/L Potassium (3.5-5.1) mmol/L Chloride (98-107) mmol/L Carbon Dioxide (21.0-32.0) mmol/L BUN (7.0-18.0) mg/dL Creatinine (0.6-1.0) mg/dL Est Cr Clr Drug Dosing mL/min Estimated GFR (MDRD) ml/min Glucose (74-106) mg/dL POC Glucose 383 H 344 H (70-99) mg/dL Calcium (8.5-10.1) mg/dL Total Bilirubin (0.2-1.0) mg/dL AST (15-37) IU/L ALT (14-63) IU/L Alkaline Phosphatase (46-116) U/L Total Protein (6.4-8.2) g/dL Albumin (3.4-5.0) g/dL Globulin (2.6-4.0) g/dL Albumin/Globulin Ratio (0.9-1.6) Urine Color Urine Appearance Urine pH (5.0-8.0) Ur Specific [place] (1.001-1.035) Urine Protein (NEGATIVE) mg/dL Urine Glucose (UA) (NEGATIVE) mg/dL Urine Ketones (NEGATIVE) mg/dL Urine Occult Blood (NEGATIVE) Urine Nitrite (NEGATIVE) Urine Bilirubin (NEGATIVE) Urine Urobilinogen (<2.0) EU/dL Ur Leukocyte Esterase (NEGATIVE) Urine RBC (0-2/HPF) Urine WBC (0-5/HPF) Ur Epithelial Cells (NONE-FEW) Urine Bacteria (NEGATIVE) Urine HCG, Qual (NEGATIVE) 02/16/21 02/16/21 02/16/21 Range/Units 06:59 06:59 11:50 WBC (4.0-11.0) K/uL RBC (4.30-5.90) M/uL Hgb (12.0-16.0) g/dL Hct (36.0-46.0) % MCV (80.0-98.0) fL MCH (27.0-32.0) pg MCHC (31.0-37.0) g/dL RDW Std Deviation (28.0-62.0) fl RDW Coeff of [place] (11.0-15.0) % Plt Count (150-400) K/uL MPV (7.40-12.00) fL Neut % (Auto) (48.0-80.0) % Lymph % (Auto) (16.0-40.0) % [place] % (Auto) (0.0-15.0) % Eos % (Auto) (0.0-7.0) % Baso % (Auto) (0.0-1.5) % Neut # (Auto) (1.4-5.7) K/uL Lymph # (Auto) (0.6-2.4) K/uL [place] # (Auto) (0.0-0.8) K/uL Eos # (Auto) (0.0-0.7) K/uL Baso # (Auto) (0.0-0.1) K/uL Nucleated RBC % /100WBC Nucleated RBCs # K/uL Sodium 136 (136-145) mmol/L Potassium 3.6 (3.5-5.1) mmol/L Chloride 97 L (98-107) mmol/L Carbon Dioxide 28.7 (21.0-32.0) mmol/L BUN 17 (7.0-18.0) mg/dL Creatinine 0.8 (0.6-1.0) mg/dL Est Cr Clr Drug Dosing 105.61 mL/min Estimated GFR (MDRD) > 60.0 ml/min Glucose 329 H (74-106) mg/dL POC Glucose 332 H 386 H (70-99) mg/dL Calcium 8.4 L (8.5-10.1) mg/dL Total Bilirubin 0.4 (0.2-1.0) mg/dL AST 30 (15-37) IU/L ALT 34 (14-63) IU/L Alkaline Phosphatase 62 (46-116) U/L Total Protein 7.8 (6.4-8.2) g/dL Albumin 2.3 L (3.4-5.0) g/dL Globulin 5.5 H (2.6-4.0) g/dL Albumin/Globulin Ratio 0.4 L (0.9-1.6) Urine Color Urine Appearance Urine pH (5.0-8.0) Ur Specific [place] (1.001-1.035) Urine Protein (NEGATIVE) mg/dL Urine Glucose (UA) (NEGATIVE) mg/dL Urine Ketones (NEGATIVE) mg/dL Urine Occult Blood (NEGATIVE) Urine Nitrite (NEGATIVE) Urine Bilirubin (NEGATIVE) Urine Urobilinogen (<2.0) EU/dL Ur Leukocyte Esterase (NEGATIVE) Urine RBC (0-2/HPF) Urine WBC (0-5/HPF) Ur Epithelial Cells (NONE-FEW) Urine Bacteria (NEGATIVE) Urine HCG, Qual (NEGATIVE) Result Diagrams: 02/16/21 06:59 02/16/21 06:59 Viktor Results Last 24 hrs: Microbiology 02/15/21 12:29 Aerobic Blood Culture - Preliminary Blood - Venous - Lab Draw NO GROWTH AFTER 1 DAY Anaerobic Blood Culture - Preliminary NO GROWTH AFTER 1 DAY 02/15/21 12:02 Aerobic Blood Culture - Preliminary Blood - Venous NO GROWTH AFTER 1 DAY Anaerobic Blood Culture - Preliminary NO GROWTH AFTER 1 DAY Sepsis Event Note - Evaluation Sepsis Screening Result: No Definite Risk - Focused Exam Vital Signs: Vital Signs Temp Pulse Resp BP Pulse Ox 02/16/21 11:00 36.4 C 96 18 109/63 89 L 02/16/21 07:00 36.3 C 98 22 H 115/70 90 L - Problem List & Annotations (1) COVID-19 SNOMED Code(s): 249192145 Code(s): U07.1 - COVID-19 Status: Acute Current Visit: Yes - Problem List Review Problem List Initiated/Reviewed/Updated: Yes - My Orders Last 24 Hours: My Active Orders 02/15/21 15:42 RT Post Treatment Assessment [RC] Click to Edit RT Pre-Treatment Assessment [RC] Click to Edit Benzonatate [Tessalon Perles] 100 mg PO Q6H PRN 02/15/21 15:43 Oxygen Therapy [RC] PRN Up ad Irais [RC] ASDIRECTED VTE/DVT Education [RC] PER UNIT ROUTINE Vital Signs [RC] Q4H Resuscitation Status Routine 02/15/21 15:45 Baricitinib [Olumiant] 4 mg PO Q24H Enoxaparin [Lovenox] 40 mg SUBCUT Q24H 02/15/21 16:27 Telemetry Monitoring [Cardiac Monitoring] [RC] Q8H 02/15/21 17:46 RT Aerosol Therapy [RC] ASDIRECTED 02/15/21 18:00 Albuterol/Ipratropium [Combivent Respimat] 0 gm INH QID 02/15/21 20:48 Accu Check [Blood Glucose Check, Bedside] [RC] TIDAC 02/15/21 20:49 Dextrose 50% in Water 50 ml IVPUSH ASDIRECTED PRN Glucagon,Human Recombinant [GlucaGen] 1 mg IM ASDIRECTED PRN 02/16/21 Breakfast ADA Diabetic [[place] [employer] Diet] [DIET] 02/16/21 07:30 Insulin Aspart [NovoLOG] See Protocol SUBCUT TIDAC 02/16/21 12:00 Remdesivir 100 mg Sodium Chloride 0.9% [Normal Saline AdvBag] 100 ml IV Q24H 02/16/21 15:45 dexAMETHasone 6 mg PO Q24H 02/16/21 21:00 Insulin Glarg,Human.Rec.Analog [LantUS Solostar] 7 units SUBCUT BEDTIME 02/17/21 05:11 CBC WITH AUTO DIFF [HEME] AM COMPREHENSIVE METABOLIC PN,CMP [CHEM] AM 02/18/21 05:11 CBC WITH AUTO DIFF [HEME] AM COMPREHENSIVE METABOLIC PN,CMP [CHEM] AM 02/19/21 05:11 CBC WITH AUTO DIFF [HEME] AM COMPREHENSIVE METABOLIC PN,CMP [CHEM] AM 02/20/21 05:11 CBC WITH AUTO DIFF [HEME] AM COMPREHENSIVE METABOLIC PN,CMP [CHEM] AM - Plan Plan:: 30 yo female admitted for COVID-19 pneumonia with acute hypoxic respiratory failure Hypoxia: on HHFNC 40 L at 83% O2 COVID-19: Treating with Remdesivir, Dexamethason, and patient consented to use of barcitinib New onset DM: treating with lantus and ssi lovenox for DVT prophylaxis.
[2021-02-16] MEDS: Enoxaparin 40 MG/0.4 ML Syringe SUBCUT SCH (16:04)
[2021-02-16] MEDS: Dexamethasone 4 MG Tab PO SCH (16:05)
[2021-02-16] MEDS ORDERED: Insulin Glargine,Human Rec. Analog 100 Units/ML 3 ML Pen SUBCUT SCH (21:00)
[2021-02-17] MEDS ORDERED: VANCOmycin 2 GM/400 ML 2 GM in Premix Bag 1 BAG IV SCH (02:00)
[2021-02-17] MEDS: Albuterol/Ipratropium 4 GM Inhalation Spray INH SCH ×3 (06:04→17:30)
--- NOTE | 2021-02-17 07:53 | PCM.PN ---
- General Info Date of Service: 02/17/21 - Review of Systems Systems Review Comment:: short of breath with exertion, reports productive cough - Patient Data Vitals - Most Recent: Last Vital Signs Temp 36.2 C 02/17/21 04:40 Pulse 68 02/17/21 04:40 Resp 20 02/16/21 23:33 BP 118/58 L 02/17/21 04:40 Pulse Ox 90 L 02/17/21 06:30 Weight - Most Recent: 117.435 kg I&O - Last 24 Hours: Intake & Output 02/16/21 02/17/21 02/17/21 22:59 06:59 14:59 Intake Total 1250 990 Output Total 0 Balance 1250 990 Lab Results Last 24 Hours: Laboratory Results - last 24 hr 02/16/21 02/16/21 02/16/21 Range/Units 06:59 06:59 11:50 WBC 4.61 (4.0-11.0) K/uL RBC 4.32 (4.30-5.90) M/uL Hgb 13.0 (12.0-16.0) g/dL Hct 39.4 (36.0-46.0) % MCV 91.2 (80.0-98.0) fL MCH 30.1 (27.0-32.0) pg MCHC 33.0 (31.0-37.0) g/dL RDW Std Deviation 42.2 (28.0-62.0) fl RDW Coeff of Arcenio 13 (11.0-15.0) % Plt Count 263 (150-400) K/uL MPV 10.10 (7.40-12.00) fL Neut % (Auto) 68.1 (48.0-80.0) % Lymph % (Auto) 25.4 (16.0-40.0) % Haywood % (Auto) 6.3 (0.0-15.0) % Eos % (Auto) 0.0 (0.0-7.0) % Baso % (Auto) 0.2 (0.0-1.5) % Neut # (Auto) 3.1 (1.4-5.7) K/uL Lymph # (Auto) 1.2 (0.6-2.4) K/uL Haywood # (Auto) 0.3 (0.0-0.8) K/uL Eos # (Auto) 0.0 (0.0-0.7) K/uL Baso # (Auto) 0.0 (0.0-0.1) K/uL Nucleated RBC % 0.0 /100WBC Nucleated RBCs # 0 K/uL Sodium 136 (136-145) mmol/L Potassium 3.6 (3.5-5.1) mmol/L Chloride 97 L (98-107) mmol/L Carbon Dioxide 28.7 (21.0-32.0) mmol/L BUN 17 (7.0-18.0) mg/dL Creatinine 0.8 (0.6-1.0) mg/dL Est Cr Clr Drug Dosing 105.61 mL/min Estimated GFR (MDRD) > 60.0 ml/min Glucose 329 H (74-106) mg/dL POC Glucose 386 H (70-99) mg/dL Calcium 8.4 L (8.5-10.1) mg/dL Total Bilirubin 0.4 (0.2-1.0) mg/dL AST 30 (15-37) IU/L ALT 34 (14-63) IU/L Alkaline Phosphatase 62 (46-116) U/L Total Protein 7.8 (6.4-8.2) g/dL Albumin 2.3 L (3.4-5.0) g/dL Globulin 5.5 H (2.6-4.0) g/dL Albumin/Globulin Ratio 0.4 L (0.9-1.6) 02/16/21 02/16/21 02/17/21 Range/Units 17:38 20:54 06:15 WBC (4.0-11.0) K/uL RBC (4.30-5.90) M/uL Hgb (12.0-16.0) g/dL Hct (36.0-46.0) % MCV (80.0-98.0) fL MCH (27.0-32.0) pg MCHC (31.0-37.0) g/dL RDW Std Deviation (28.0-62.0) fl RDW Coeff of Arcenio (11.0-15.0) % Plt Count (150-400) K/uL MPV (7.40-12.00) fL Neut % (Auto) (48.0-80.0) % Lymph % (Auto) (16.0-40.0) % Haywood % (Auto) (0.0-15.0) % Eos % (Auto) (0.0-7.0) % Baso % (Auto) (0.0-1.5) % Neut # (Auto) (1.4-5.7) K/uL Lymph # (Auto) (0.6-2.4) K/uL Haywood # (Auto) (0.0-0.8) K/uL Eos # (Auto) (0.0-0.7) K/uL Baso # (Auto) (0.0-0.1) K/uL Nucleated RBC % /100WBC Nucleated RBCs # K/uL Sodium (136-145) mmol/L Potassium (3.5-5.1) mmol/L Chloride (98-107) mmol/L Carbon Dioxide (21.0-32.0) mmol/L BUN (7.0-18.0) mg/dL Creatinine (0.6-1.0) mg/dL Est Cr Clr Drug Dosing mL/min Estimated GFR (MDRD) ml/min Glucose (74-106) mg/dL POC Glucose 339 H 382 H 343 H (70-99) mg/dL Calcium (8.5-10.1) mg/dL Total Bilirubin (0.2-1.0) mg/dL AST (15-37) IU/L ALT (14-63) IU/L Alkaline Phosphatase (46-116) U/L Total Protein (6.4-8.2) g/dL Albumin (3.4-5.0) g/dL Globulin (2.6-4.0) g/dL Albumin/Globulin Ratio (0.9-1.6) Viktor Results Last 24 Hours: Microbiology 02/15/21 12:02 Aerobic Blood Culture - Final Blood - Venous Anaerobic Blood Culture - Preliminary NO GROWTH AFTER 1 DAY 02/15/21 12:29 Aerobic Blood Culture - Preliminary Blood - Venous - Lab Draw NO GROWTH AFTER 1 DAY Anaerobic Blood Culture - Preliminary NO GROWTH AFTER 1 DAY Med Orders - Current: Current Medications Albuterol/Ipratropium (Albuterol/Ipratropium 4 Gm Inhalation Burket) 0 gm INH QID JAYMIE Last Admin: 02/17/21 06:04 Dose: 1 puff Documented by: Baricitinib (Baricitinib 2 Mg Tab) 4 mg PO Q24H [facility] Last Admin: 02/16/21 16:05 Dose: 4 mg Documented by: Benzonatate (Benzonatate 100 Mg Cap) 100 mg PO Q6H PRN PRN Reason: Cough Dexamethasone (Dexamethasone 4 Mg Tab) 6 mg PO Q24H [facility] Last Admin: 02/16/21 16:05 Dose: 6 mg Documented by: Dextrose/Water (50% Dextrose In Water 50 Ml Syringe) 50 ml IVPUSH ASDIRECTED PRN PRN Reason: Hypoglycemia Enoxaparin Sodium (Enoxaparin 40 Mg/0.4 Ml Syringe) 40 mg SUBCUT Q24H [facility] Last Admin: 02/16/21 16:04 Dose: 40 mg Documented by: Glucagon (Glucagon,Human Recombinant 1 Mg Vial) 1 mg IM ASDIRECTED PRN PRN Reason: Hypoglycemia Remdesivir 100 mg/ Sodium (Chloride) 100 mls @ 100 mls/hr IV Q24H [facility] Stop: 02/19/21 12:59 Last Admin: 02/16/21 12:30 Dose: 100 mls/hr Documented by: Levofloxacin/Dextrose 750 mg/ (Premix) 150 mls @ 100 mls/hr IV Q24H [facility] Last Admin: 02/17/21 00:00 Dose: 100 mls/hr Documented by: Vancomycin HCl 2 gm/ Premix 400 mls @ 200 mls/hr IV ONETIME [facility] Last Admin: 02/17/21 02:05 Dose: 200 mls/hr Documented by: Vancomycin HCl 1.75 gm/ Premix 350 mls @ 200 mls/hr IV Q8H [facility] Insulin Aspart (Insulin Aspart 100 Units/Ml 3 Ml Pen) 0 unit SUBCUT TIDAC [facility]; Protocol Last Admin: 02/16/21 18:11 Dose: 4 units Documented by: Insulin Aspart (Insulin Aspart 100 Units/Ml 3 Ml Pen) 4 unit SUBCUT TIDAC [facility] Insulin Glargine (Insulin Glargine,Human Rec. Analog 100 Units/Ml 3 Ml Pen) 12 units SUBCUT BEDTIME [facility] Sodium Chloride (Sodium Chloride 0.9% 10 Ml Syringe) 10 ml FLUSH ASDIRECTED PRN PRN Reason: Keep Vein Open Last Admin: 02/15/21 12:31 Dose: 10 ml Documented by: Sodium Chloride (Sodium Chloride 0.9% 2.5 Ml Syringe) 2.5 ml FLUSH ASDIRECTED PRN PRN Reason: Keep Vein Open Last Admin: 02/15/21 12:31 Dose: 2.5 ml Documented by: Vancomycin HCl (Pharmacy To Dose - Vancomycin) 1 dose .XX ASDIRECTED JAYMIE Discontinued Medications Dexamethasone (Dexamethasone 10 Mg/Ml Sdv) 6 mg IVPUSH ONETIME ONE Stop: 02/15/21 12:04 Last Admin: 02/15/21 12:30 Dose: 6 mg Documented by: Dextrose/Water (50% Dextrose In Water 50 Ml Syringe) 50 ml IVPUSH ASDIRECTED MI N PRN Reason: Hypoglycemia Glucagon (Glucagon,Human Recombinant 1 Mg Vial) 1 mg IM ASDIRECTED PRN PRN Reason: Hypoglycemia Remdesivir 200 mg/ Sodium (Chloride) 250 mls @ 250 mls/hr IV ONETIME ONE Stop: 02/15/21 12:04 Last Admin: 02/15/21 14:02 Dose: Not Given Documented by: Remdesivir 200 mg/ Sodium (Chloride) 250 mls @ 250 mls/hr IV ONETIME ONE Stop: 02/15/21 13:29 Last Admin: 02/15/21 14:01 Dose: 250 mls/hr Documented by: Insulin Aspart (Insulin Aspart 100 Units/Ml 3 Ml Pen) 8 unit SUBCUT NOW ONE Stop: 02/15/21 21:51 Last Admin: 02/15/21 21:54 Dose: 8 units Documented by: Insulin Aspart (Insulin Aspart 100 Units/Ml 3 Ml Pen) Confirm Administered Dose 300 unit .ROUTE .STK-MED ONE Stop: 02/15/21 21:44 Last Admin: 02/15/21 22:09 Dose: Not Given Documented by: Insulin Glargine (Insulin Glargine,Human Rec. Analog 100 Units/Ml 3 Ml Pen) 7 units SUBCUT BEDTIME JAYMIE Last Admin: 02/16/21 20:56 Dose: 7 units Documented by: Iopamidol (Iopamidol 755 Mg/Ml 500 Ml Multipack Bottle) 100 ml IVPUSH ONETIME ONE Stop: 02/15/21 15:48 Last Admin: 02/15/21 15:48 Dose: 100 ml Documented by: Ketorolac Tromethamine (Ketorolac 30 Mg/Ml Sdv) 30 mg IVPUSH ONETIME ONE Stop: 02/15/21 11:53 Last Admin: 02/15/21 12:31 Dose: 30 mg Documented by: - Exam General: Alert, Oriented Neck: Supple Lungs: Normal Respiratory Effort, Rhonchi Cardiovascular: Regular Rate, Regular Rhythm GI/Abdominal Exam: Normal Bowel Sounds, Soft, Non-Tender Extremities: Non-Tender Skin: Warm, Dry, Intact Neurological: No New Focal Deficit - Patient Data Lab Results Last 24 hrs: Laboratory Results - last 24 hr 02/16/21 02/16/21 02/16/21 Range/Units 06:59 06:59 11:50 WBC 4.61 (4.0-11.0) K/uL RBC 4.32 (4.30-5.90) M/uL Hgb 13.0 (12.0-16.0) g/dL Hct 39.4 (36.0-46.0) % MCV 91.2 (80.0-98.0) fL MCH 30.1 (27.0-32.0) pg MCHC 33.0 (31.0-37.0) g/dL RDW Std Deviation 42.2 (28.0-62.0) fl RDW Coeff of Arcenio 13 (11.0-15.0) % Plt Count 263 (150-400) K/uL MPV 10.10 (7.40-12.00) fL Neut % (Auto) 68.1 (48.0-80.0) % Lymph % (Auto) 25.4 (16.0-40.0) % [place]wood % (Auto) 6.3 (0.0-15.0) % Eos % (Auto) 0.0 (0.0-7.0) % Baso % (Auto) 0.2 (0.0-1.5) % Neut # (Auto) 3.1 (1.4-5.7) K/uL Lymph # (Auto) 1.2 (0.6-2.4) K/uL [place]wood # (Auto) 0.3 (0.0-0.8) K/uL Eos # (Auto) 0.0 (0.0-0.7) K/uL Baso # (Auto) 0.0 (0.0-0.1) K/uL Nucleated RBC % 0.0 /100WBC Nucleated RBCs # 0 K/uL Sodium 136 (136-145) mmol/L Potassium 3.6 (3.5-5.1) mmol/L Chloride 97 L (98-107) mmol/L Carbon Dioxide 28.7 (21.0-32.0) mmol/L BUN 17 (7.0-18.0) mg/dL Creatinine 0.8 (0.6-1.0) mg/dL Est Cr Clr Drug Dosing 105.61 mL/min Estimated GFR (MDRD) > 60.0 ml/min Glucose 329 H (74-106) mg/dL POC Glucose 386 H (70-99) mg/dL Calcium 8.4 L (8.5-10.1) mg/dL Total Bilirubin 0.4 (0.2-1.0) mg/dL AST 30 (15-37) IU/L ALT 34 (14-63) IU/L Alkaline Phosphatase 62 (46-116) U/L Total Protein 7.8 (6.4-8.2) g/dL Albumin 2.3 L (3.4-5.0) g/dL Globulin 5.5 H (2.6-4.0) g/dL Albumin/Globulin Ratio 0.4 L (0.9-1.6) 02/16/21 02/16/21 02/17/21 Range/Units 17:38 20:54 06:15 WBC (4.0-11.0) K/uL RBC (4.30-5.90) M/uL Hgb (12.0-16.0) g/dL Hct (36.0-46.0) % MCV (80.0-98.0) fL MCH (27.0-32.0) pg MCHC (31.0-37.0) g/dL RDW Std Deviation (28.0-62.0) fl RDW Coeff of Arcenio (11.0-15.0) % Plt Count (150-400) K/uL MPV (7.40-12.00) fL Neut % (Auto) (48.0-80.0) % Lymph % (Auto) (16.0-40.0) % [place]wood % (Auto) (0.0-15.0) % Eos % (Auto) (0.0-7.0) % Baso % (Auto) (0.0-1.5) % Neut # (Auto) (1.4-5.7) K/uL Lymph # (Auto) (0.6-2.4) K/uL [place]wood # (Auto) (0.0-0.8) K/uL Eos # (Auto) (0.0-0.7) K/uL Baso # (Auto) (0.0-0.1) K/uL Nucleated RBC % /100WBC Nucleated RBCs # K/uL Sodium (136-145) mmol/L Potassium (3.5-5.1) mmol/L Chloride (98-107) mmol/L Carbon Dioxide (21.0-32.0) mmol/L BUN (7.0-18.0) mg/dL Creatinine (0.6-1.0) mg/dL Est Cr Clr Drug Dosing mL/min Estimated GFR (MDRD) ml/min Glucose (74-106) mg/dL POC Glucose 339 H 382 H 343 H (70-99) mg/dL Calcium (8.5-10.1) mg/dL Total Bilirubin (0.2-1.0) mg/dL AST (15-37) IU/L ALT (14-63) IU/L Alkaline Phosphatase (46-116) U/L Total Protein (6.4-8.2) g/dL Albumin (3.4-5.0) g/dL Globulin (2.6-4.0) g/dL Albumin/Globulin Ratio (0.9-1.6) Result Diagrams: 02/16/21 06:59 02/16/21 06:59 Viktor Results Last 24 hrs: Microbiology 02/15/21 12:02 Aerobic Blood Culture - Final Blood - Venous Anaerobic Blood Culture - Preliminary NO GROWTH AFTER 1 DAY 02/15/21 12:29 Aerobic Blood Culture - Preliminary Blood - Venous - Lab Draw NO GROWTH AFTER 1 DAY Anaerobic Blood Culture - Preliminary NO GROWTH AFTER 1 DAY Sepsis Event Note - Evaluation Sepsis Screening Result: No Definite Risk - Focused Exam Vital Signs: Vital Signs Temp Pulse Resp BP Pulse Ox 02/17/21 06:30 90 L 02/17/21 04:43 89 L 02/17/21 04:40 36.2 C 68 118/58 L 93 L 02/16/21 23:33 36.4 C 75 20 114/49 L 92 L 02/16/21 20:52 93 L 02/16/21 20:51 96 02/16/21 20:50 36.3 C 79 20 119/58 L 93 L - Problem List & Annotations (1) COVID-19 SNOMED Code(s): 572177271 Code(s): U07.1 - COVID-19 Status: Acute Current Visit: Yes - Problem List Review Problem List Initiated/Reviewed/Updated: Yes - My Orders Last 24 Hours: My Active Orders 02/16/21 07:30 Insulin Aspart [NovoLOG] See Protocol SUBCUT TIDAC 02/16/21 12:00 Remdesivir 100 mg Sodium Chloride 0.9% [Normal Saline AdvBag] 100 ml IV Q24H 02/16/21 15:45 dexAMETHasone 6 mg PO Q24H 02/16/21 15:53 Consult to Diabetic Nurse Specialist [CONS] Routine 02/16/21 23:00 Levofloxacin/Dextrose 5%-Water [Levaquin in D5W 750 MG/150 ML] 750 mg Premix Bag 1 bag IV Q24H 02/16/21 23:30 Pharmacy to Dose - Vancomycin 1 dose .XX ASDIRECTED 02/17/21 02:00 VANCOmycin 2 GM/400 ML 2 gm Premix Bag 1 bag IV ONETIME 02/17/21 06:51 CBC WITH AUTO DIFF [HEME] AM COMPREHENSIVE METABOLIC PN,CMP [CHEM] AM 02/17/21 07:28 CULTURE BLOOD [BC] Stat CULTURE BLOOD [BC] Stat Blood Culture x2 Reflex Set [OM.PC] Stat 02/17/21 07:30 Insulin Aspart [NovoLOG] 4 unit SUBCUT TIDAC 02/17/21 10:00 VANCOmycin 1.75 GM/350 ML 1.75 gm Premix Bag 1 bag IV Q8H 02/17/21 21:00 Insulin Glarg,Human.Rec.Analog [LantUS Solostar] 12 units SUBCUT BEDTIME 02/18/21 05:11 CBC WITH AUTO DIFF [HEME] AM COMPREHENSIVE METABOLIC PN,CMP [CHEM] AM 02/18/21 09:30 VANCOMYCIN TROUGH [CHEM] Timed 02/19/21 05:11 CBC WITH AUTO DIFF [HEME] AM COMPREHENSIVE METABOLIC PN,CMP [CHEM] AM 02/20/21 05:11 CBC WITH AUTO DIFF [HEME] AM COMPREHENSIVE METABOLIC PN,CMP [CHEM] AM - Plan Plan:: 30 yo female admitted for COVID-19 pneumonia with acute hypoxic respiratory failure Hypoxia: on HHFNC 40 L at 78% O2 COVID-19: Treating with Remdesivir, Dexamethason, and patient consented to use of barcitinib New onset DM: will increase lantus and ssi 1/4 BC growing gram positive rods: I suspect contaminate but will place on vancomycin and Levaquin and repeat blood culture lovenox for DVT prophylaxis.
[2021-02-17 08:28] LABS: BLOOD UREA NITROGEN,BUN 18 mg/dL (7.0-18.0); CARBON DIOXIDE,CO2 26.9 mmol/L (21.0-32.0); CHLORIDE,CL 99 mmol/L (98-107); GLUCOSE RANDOM 363 mg/dL (74-106); SODIUM,NA 136 mmol/L (136-145)
[2021-02-17] MEDS: Insulin Aspart 100 Units/ML 3 ML Pen SUBCUT SCH ×6 (09:24→18:13)
[2021-02-17] MEDS: VANCOmycin 1.75 GM/350 ML 1.75 GM in Premix Bag 1 BAG IV SCH ×2 (09:37→18:12)
[2021-02-17] MEDS: REMDESIVIR 100 MG in Sodium Chloride 0.9% 100 ML IV SCH (12:00)
[2021-02-17] MEDS: Dexamethasone 4 MG Tab PO SCH (15:26)
[2021-02-17] MEDS: Enoxaparin 40 MG/0.4 ML Syringe SUBCUT SCH (15:27)
[2021-02-17] MEDS ORDERED: Insulin Glargine,Human Rec. Analog 100 Units/ML 3 ML Pen SUBCUT SCH ×2 (21:00)
[2021-02-17] MEDS: Levofloxacin/Dextrose 5%-Water 750 MG in Premix Bag 1 BAG IV SCH ×3 (22:04)
[2021-02-18] MEDS: Albuterol/Ipratropium 4 GM Inhalation Spray INH SCH ×4 (00:57→17:11)
[2021-02-18] MEDS: VANCOmycin 1.75 GM/350 ML 1.75 GM in Premix Bag 1 BAG IV SCH ×4 (03:00→20:22)
[2021-02-18 07:51] LABS: BLOOD UREA NITROGEN,BUN 17 mg/dL (7.0-18.0); CARBON DIOXIDE,CO2 23.7 mmol/L (21.0-32.0); CHLORIDE,CL 100 mmol/L (98-107); GLUCOSE RANDOM 359 mg/dL (74-106); POTASSIUM,K 4.8 mmol/L (3.5-5.1); SODIUM,NA 136 mmol/L (136-145)
[2021-02-18] MEDS: Insulin Aspart 100 Units/ML 3 ML Pen SUBCUT SCH ×6 (09:21→18:21)
[2021-02-18] MEDS: REMDESIVIR 100 MG in Sodium Chloride 0.9% 100 ML IV SCH (12:24)
--- NOTE | 2021-02-18 12:44 | PCM.PN ---
- General Info Date of Service: 02/18/21 - Review of Systems Systems Review Comment:: shortness of breath is improving, still short of breath when walking to bathroom - Patient Data Vitals - Most Recent: Last Vital Signs Temp 35.9 C L 02/18/21 08:00 Pulse 72 02/18/21 08:00 Resp 19 02/18/21 08:00 BP 124/76 02/18/21 08:00 Pulse Ox 93 L 02/18/21 08:00 Weight - Most Recent: 117.435 kg I&O - Last 24 Hours: Intake & Output 02/17/21 02/18/21 02/18/21 22:59 06:59 14:59 Intake Total 860 720 Output Total 1200 Balance 860 -480 Lab Results Last 24 Hours: Laboratory Results - last 24 hr 02/17/21 02/17/21 02/17/21 Range/Units 12:37 17:34 21:58 WBC (4.0-11.0) K/uL RBC (4.30-5.90) M/uL Hgb (12.0-16.0) g/dL Hct (36.0-46.0) % MCV (80.0-98.0) fL MCH (27.0-32.0) pg MCHC (31.0-37.0) g/dL RDW Std Deviation (28.0-62.0) fl RDW Coeff of Arcenio (11.0-15.0) % Plt Count (150-400) K/uL MPV (7.40-12.00) fL Neut % (Auto) (48.0-80.0) % Lymph % (Auto) (16.0-40.0) % [place] % (Auto) (0.0-15.0) % Eos % (Auto) (0.0-7.0) % Baso % (Auto) (0.0-1.5) % Neut # (Auto) (1.4-5.7) K/uL Lymph # (Auto) (0.6-2.4) K/uL [place] # (Auto) (0.0-0.8) K/uL Eos # (Auto) (0.0-0.7) K/uL Baso # (Auto) (0.0-0.1) K/uL Nucleated RBC % /100WBC Nucleated RBCs # K/uL Sodium (136-145) mmol/L Potassium (3.5-5.1) mmol/L Chloride (98-107) mmol/L Carbon Dioxide (21.0-32.0) mmol/L BUN (7.0-18.0) mg/dL Creatinine (0.6-1.0) mg/dL Est Cr Clr Drug Dosing mL/min Estimated GFR (MDRD) ml/min Glucose (74-106) mg/dL POC Glucose 364 H 341 H 398 H (70-99) mg/dL Calcium (8.5-10.1) mg/dL Total Bilirubin (0.2-1.0) mg/dL AST (15-37) IU/L ALT (14-63) IU/L Alkaline Phosphatase (46-116) U/L Total Protein (6.4-8.2) g/dL Albumin (3.4-5.0) g/dL Globulin (2.6-4.0) g/dL Albumin/Globulin Ratio (0.9-1.6) Vancomycin Trough (5.0-10.0) ug/mL 02/18/21 02/18/21 02/18/21 Range/Units 05:50 05:50 06:49 WBC 4.64 (4.0-11.0) K/uL RBC 4.58 (4.30-5.90) M/uL Hgb 14.1 (12.0-16.0) g/dL Hct 41.8 (36.0-46.0) % MCV 91.3 (80.0-98.0) fL MCH 30.8 (27.0-32.0) pg MCHC 33.7 (31.0-37.0) g/dL RDW Std Deviation 41.4 (28.0-62.0) fl RDW Coeff of Arcenio 13 (11.0-15.0) % Plt Count 306 (150-400) K/uL MPV 10.60 (7.40-12.00) fL Neut % (Auto) 75.9 (48.0-80.0) % Lymph % (Auto) 16.8 (16.0-40.0) % [place] % (Auto) 7.3 (0.0-15.0) % Eos % (Auto) 0.0 (0.0-7.0) % Baso % (Auto) 0.0 (0.0-1.5) % Neut # (Auto) 3.5 (1.4-5.7) K/uL Lymph # (Auto) 0.8 (0.6-2.4) K/uL [place] # (Auto) 0.3 (0.0-0.8) K/uL Eos # (Auto) 0.0 (0.0-0.7) K/uL Baso # (Auto) 0.0 (0.0-0.1) K/uL Nucleated RBC % 0.0 /100WBC Nucleated RBCs # 0 K/uL Sodium 136 (136-145) mmol/L Potassium 4.8 (3.5-5.1) mmol/L Chloride 100 (98-107) mmol/L Carbon Dioxide 23.7 (21.0-32.0) mmol/L BUN 17 (7.0-18.0) mg/dL Creatinine 0.7 (0.6-1.0) mg/dL Est Cr Clr Drug Dosing 120.70 mL/min Estimated GFR (MDRD) > 60.0 ml/min Glucose 359 H (74-106) mg/dL POC Glucose 353 H (70-99) mg/dL Calcium 8.7 (8.5-10.1) mg/dL Total Bilirubin 0.4 (0.2-1.0) mg/dL AST 49 H (15-37) IU/L ALT 41 (14-63) IU/L Alkaline Phosphatase 63 (46-116) U/L Total Protein 6.8 (6.4-8.2) g/dL Albumin 2.4 L (3.4-5.0) g/dL Globulin 4.4 H (2.6-4.0) g/dL Albumin/Globulin Ratio 0.6 L (0.9-1.6) Vancomycin Trough (5.0-10.0) ug/mL 02/18/21 Range/Units 10:26 WBC (4.0-11.0) K/uL RBC (4.30-5.90) M/uL Hgb (12.0-16.0) g/dL Hct (36.0-46.0) % MCV (80.0-98.0) fL MCH (27.0-32.0) pg MCHC (31.0-37.0) g/dL RDW Std Deviation (28.0-62.0) fl RDW Coeff of Arcenio (11.0-15.0) % Plt Count (150-400) K/uL MPV (7.40-12.00) fL Neut % (Auto) (48.0-80.0) % Lymph % (Auto) (16.0-40.0) % [place] % (Auto) (0.0-15.0) % Eos % (Auto) (0.0-7.0) % Baso % (Auto) (0.0-1.5) % Neut # (Auto) (1.4-5.7) K/uL Lymph # (Auto) (0.6-2.4) K/uL [place] # (Auto) (0.0-0.8) K/uL Eos # (Auto) (0.0-0.7) K/uL Baso # (Auto) (0.0-0.1) K/uL Nucleated RBC % /100WBC Nucleated RBCs # K/uL Sodium (136-145) mmol/L Potassium (3.5-5.1) mmol/L Chloride (98-107) mmol/L Carbon Dioxide (21.0-32.0) mmol/L BUN (7.0-18.0) mg/dL Creatinine (0.6-1.0) mg/dL Est Cr Clr Drug Dosing mL/min Estimated GFR (MDRD) ml/min Glucose (74-106) mg/dL POC Glucose (70-99) mg/dL Calcium (8.5-10.1) mg/dL Total Bilirubin (0.2-1.0) mg/dL AST (15-37) IU/L ALT (14-63) IU/L Alkaline Phosphatase (46-116) U/L Total Protein (6.4-8.2) g/dL Albumin (3.4-5.0) g/dL Globulin (2.6-4.0) g/dL Albumin/Globulin Ratio (0.9-1.6) Vancomycin Trough 16.8 H (5.0-10.0) ug/mL Viktor Results Last 24 Hours: Microbiology 02/15/21 12:02 Aerobic Blood Culture - Final Blood - Venous Anaerobic Blood Culture - Preliminary NO GROWTH AFTER 3 DAYS 02/17/21 08:06 Aerobic Blood Culture - Preliminary Blood - Venous - Lab Draw NO GROWTH AFTER 1 DAY Anaerobic Blood Culture - Preliminary NO GROWTH AFTER 1 DAY 02/17/21 08:06 Aerobic Blood Culture - Preliminary Blood - Venous NO GROWTH AFTER 1 DAY Anaerobic Blood Culture - Preliminary NO GROWTH AFTER 1 DAY 02/16/21 12:02 Blood Culture Identification Panel - Preliminary Blood Gram Positive Rods 02/16/21 12:02 Bacteria Detection (PCR) - Final Blood 02/15/21 12:29 Aerobic Blood Culture - Preliminary Blood - Venous - Lab Draw NO GROWTH AFTER 2 DAYS Anaerobic Blood Culture - Preliminary NO GROWTH AFTER 2 DAYS Med Orders - Current: Current Medications Albuterol/Ipratropium (Albuterol/Ipratropium 4 Gm Inhalation Lucas) 0 gm INH QID [facility] Last Admin: 02/18/21 11:32 Dose: 1 puff Documented by: Baricitinib (Baricitinib 2 Mg Tab) 4 mg PO Q24H [facility] Last Admin: 02/17/21 15:26 Dose: 4 mg Documented by: Benzonatate (Benzonatate 100 Mg Cap) 100 mg PO Q6H PRN PRN Reason: Cough Dexamethasone (Dexamethasone 4 Mg Tab) 6 mg PO Q24H [facility] Last Admin: 02/17/21 15:26 Dose: 6 mg Documented by: Dextrose/Water (50% Dextrose In Water 50 Ml Syringe) 50 ml IVPUSH ASDIRECTED PRN PRN Reason: Hypoglycemia Enoxaparin Sodium (Enoxaparin 40 Mg/0.4 Ml Syringe) 40 mg SUBCUT Q24H [facility] Last Admin: 02/17/21 15:27 Dose: 40 mg Documented by: Glucagon (Glucagon,Human Recombinant 1 Mg Vial) 1 mg IM ASDIRECTED PRN PRN Reason: Hypoglycemia Remdesivir 100 mg/ Sodium (Chloride) 100 mls @ 100 mls/hr IV Q24H [facility] Stop: 02/19/21 12:59 Last Admin: 02/17/21 12:00 Dose: 100 mls/hr Documented by: Levofloxacin/Dextrose 750 mg/ (Premix) 150 mls @ 100 mls/hr IV Q24H [facility] Last Admin: 02/17/21 22:04 Dose: 100 mls/hr Documented by: Vancomycin HCl 1.75 gm/ Premix 350 mls @ 200 mls/hr IV Q8H [facility] Insulin Aspart (Insulin Aspart 100 Units/Ml 3 Ml Pen) 0 unit SUBCUT TIDAC JAYMIE; Protocol Last Admin: 02/18/21 09:22 Dose: 10 units Documented by: Insulin Aspart (Insulin Aspart 100 Units/Ml 3 Ml Pen) 4 unit SUBCUT TIDAC JAYMIE Last Admin: 02/18/21 09:21 Dose: 4 units Documented by: Insulin Glargine (Insulin Glargine,Human Rec. Analog 100 Units/Ml 3 Ml Pen) 24 units SUBCUT BEDTIME JAYMIE Sodium Chloride (Sodium Chloride 0.9% 10 Ml Syringe) 10 ml FLUSH ASDIRECTED PRN PRN Reason: Keep Vein Open Last Admin: 02/15/21 12:31 Dose: 10 ml Documented by: Sodium Chloride (Sodium Chloride 0.9% 2.5 Ml Syringe) 2.5 ml FLUSH ASDIRECTED PRN PRN Reason: Keep Vein Open Last Admin: 02/15/21 12:31 Dose: 2.5 ml Documented by: Vancomycin HCl (Pharmacy To Dose - Vancomycin) 1 dose .XX ASDIRECTED JAYMIE Discontinued Medications Dexamethasone (Dexamethasone 10 Mg/Ml Sdv) 6 mg IVPUSH ONETIME ONE Stop: 02/15/21 12:04 Last Admin: 02/15/21 12:30 Dose: 6 mg Documented by: Dextrose/Water (50% Dextrose In Water 50 Ml Syringe) 50 ml IVPUSH ASDIRECTED PRN PRN Reason: Hypoglycemia Glucagon (Glucagon,Human Recombinant 1 Mg Vial) 1 mg IM ASDIRECTED PRN PRN Reason: Hypoglycemia Remdesivir 200 mg/ Sodium (Chloride) 250 mls @ 250 mls/hr IV ONETIME ONE Stop: 02/15/21 12:04 Last Admin: 02/15/21 14:02 Dose: Not Given Documented by: Remdesivir 200 mg/ Sodium (Chloride) 250 mls @ 250 mls/hr IV ONETIME ONE Stop: 02/15/21 13:29 Last Admin: 02/15/21 14:01 Dose: 250 mls/hr Documented by: Vancomycin HCl 2 gm/ Premix 400 mls @ 200 mls/hr IV ONETIME [facility] Last Admin: 02/17/21 02:05 Dose: 200 mls/hr Documented by: Vancomycin HCl 1.75 gm/ Premix 350 mls @ 200 mls/hr IV Q8H [facility] Last Admin: 02/18/21 03:00 Dose: 200 mls/hr Documented by: Insulin Aspart (Insulin Aspart 100 Units/Ml 3 Ml Pen) 8 unit SUBCUT NOW ONE Stop: 02/15/21 21:51 Last Admin: 02/15/21 21:54 Dose: 8 units Documented by: Insulin Aspart (Insulin Aspart 100 Units/Ml 3 Ml Pen) Confirm Administered Dose 300 unit .ROUTE .STK-MED ONE Stop: 02/15/21 21:44 Last Admin: 02/15/21 22:09 Dose: Not Given Documented by: Insulin Glargine (Insulin Glargine,Human Rec. Analog 100 Units/Ml 3 Ml Pen) 7 units SUBCUT BEDTIME JAYMIE Last Admin: 02/16/21 20:56 Dose: 7 units Documented by: Insulin Glargine (Insulin Glargine,Human Rec. Analog 100 Units/Ml 3 Ml Pen) 12 units SUBCUT BEDTIME JAYMIE Insulin Glargine (Insulin Glargine,Human Rec. Analog 100 Units/Ml 3 Ml Pen) 18 units SUBCUT BEDTIME JAYMIE Last Admin: 02/17/21 22:00 Dose: 18 units Documented by: Iopamidol (Iopamidol 755 Mg/Ml 500 Ml Multipack Bottle) 100 ml IVPUSH ONETIME ONE Stop: 02/15/21 15:48 Last Admin: 02/15/21 15:48 Dose: 100 ml Documented by: Ketorolac Tromethamine (Ketorolac 30 Mg/Ml Sdv) 30 mg IVPUSH ONETIME ONE Stop: 02/15/21 11:53 Last Admin: 02/15/21 12:31 Dose: 30 mg Documented by: - Exam General: Alert, Oriented Neck: Supple Lungs: Clear to Auscultation, Normal Respiratory Effort Cardiovascular: Regular Rate, Regular Rhythm GI/Abdominal Exam: Soft, Non-Tender, No Distention Extremities: Non-Tender, No Pedal Edema Skin: Warm, Dry, Intact Neurological: No New Focal Deficit - Patient Data Lab Results Last 24 hrs: Laboratory Results - last 24 hr 02/17/21 02/17/21 02/17/21 Range/Units 12:37 17:34 21:58 WBC (4.0-11.0) K/uL RBC (4.30-5.90) M/uL Hgb (12.0-16.0) g/dL Hct (36.0-46.0) % MCV (80.0-98.0) fL MCH (27.0-32.0) pg MCHC (31.0-37.0) g/dL RDW Std Deviation (28.0-62.0) fl RDW Coeff of Arcenio (11.0-15.0) % Plt Count (150-400) K/uL MPV (7.40-12.00) fL Neut % (Auto) (48.0-80.0) % Lymph % (Auto) (16.0-40.0) % [place] % (Auto) (0.0-15.0) % Eos % (Auto) (0.0-7.0) % Baso % (Auto) (0.0-1.5) % Neut # (Auto) (1.4-5.7) K/uL Lymph # (Auto) (0.6-2.4) K/uL [place] # (Auto) (0.0-0.8) K/uL Eos # (Auto) (0.0-0.7) K/uL Baso # (Auto) (0.0-0.1) K/uL Nucleated RBC % /100WBC Nucleated RBCs # K/uL Sodium (136-145) mmol/L Potassium (3.5-5.1) mmol/L Chloride (98-107) mmol/L Carbon Dioxide (21.0-32.0) mmol/L BUN (7.0-18.0) mg/dL Creatinine (0.6-1.0) mg/dL Est Cr Clr Drug Dosing mL/min Estimated GFR (MDRD) ml/min Glucose (74-106) mg/dL POC Glucose 364 H 341 H 398 H (70-99) mg/dL Calcium (8.5-10.1) mg/dL Total Bilirubin (0.2-1.0) mg/dL AST (15-37) IU/L ALT (14-63) IU/L Alkaline Phosphatase (46-116) U/L Total Protein (6.4-8.2) g/dL Albumin (3.4-5.0) g/dL Globulin (2.6-4.0) g/dL Albumin/Globulin Ratio (0.9-1.6) Vancomycin Trough (5.0-10.0) ug/mL 02/18/21 02/18/21 02/18/21 Range/Units 05:50 05:50 06:49 WBC 4.64 (4.0-11.0) K/uL RBC 4.58 (4.30-5.90) M/uL Hgb 14.1 (12.0-16.0) g/dL Hct 41.8 (36.0-46.0) % MCV 91.3 (80.0-98.0) fL MCH 30.8 (27.0-32.0) pg MCHC 33.7 (31.0-37.0) g/dL RDW Std Deviation 41.4 (28.0-62.0) fl RDW Coeff of Arcenio 13 (11.0-15.0) % Plt Count 306 (150-400) K/uL MPV 10.60 (7.40-12.00) fL Neut % (Auto) 75.9 (48.0-80.0) % Lymph % (Auto) 16.8 (16.0-40.0) % [place] % (Auto) 7.3 (0.0-15.0) % Eos % (Auto) 0.0 (0.0-7.0) % Baso % (Auto) 0.0 (0.0-1.5) % Neut # (Auto) 3.5 (1.4-5.7) K/uL Lymph # (Auto) 0.8 (0.6-2.4) K/uL [place] # (Auto) 0.3 (0.0-0.8) K/uL Eos # (Auto) 0.0 (0.0-0.7) K/uL Baso # (Auto) 0.0 (0.0-0.1) K/uL Nucleated RBC % 0.0 /100WBC Nucleated RBCs # 0 K/uL Sodium 136 (136-145) mmol/L Potassium 4.8 (3.5-5.1) mmol/L Chloride 100 (98-107) mmol/L Carbon Dioxide 23.7 (21.0-32.0) mmol/L BUN 17 (7.0-18.0) mg/dL Creatinine 0.7 (0.6-1.0) mg/dL Est Cr Clr Drug Dosing 120.70 mL/min Estimated GFR (MDRD) > 60.0 ml/min Glucose 359 H (74-106) mg/dL POC Glucose 353 H (70-99) mg/dL Calcium 8.7 (8.5-10.1) mg/dL Total Bilirubin 0.4 (0.2-1.0) mg/dL AST 49 H (15-37) IU/L ALT 41 (14-63) IU/L Alkaline Phosphatase 63 (46-116) U/L Total Protein 6.8 (6.4-8.2) g/dL Albumin 2.4 L (3.4-5.0) g/dL Globulin 4.4 H (2.6-4.0) g/dL Albumin/Globulin Ratio 0.6 L (0.9-1.6) Vancomycin Trough (5.0-10.0) ug/mL 02/18/21 Range/Units 10:26 WBC (4.0-11.0) K/uL RBC (4.30-5.90) M/uL Hgb (12.0-16.0) g/dL Hct (36.0-46.0) % MCV (80.0-98.0) fL MCH (27.0-32.0) pg MCHC (31.0-37.0) g/dL RDW Std Deviation (28.0-62.0) fl RDW Coeff of Arcenio (11.0-15.0) % Plt Count (150-400) K/uL MPV (7.40-12.00) fL Neut % (Auto) (48.0-80.0) % Lymph % (Auto) (16.0-40.0) % [place] % (Auto) (0.0-15.0) % Eos % (Auto) (0.0-7.0) % Baso % (Auto) (0.0-1.5) % Neut # (Auto) (1.4-5.7) K/uL Lymph # (Auto) (0.6-2.4) K/uL [place] # (Auto) (0.0-0.8) K/uL Eos # (Auto) (0.0-0.7) K/uL Baso # (Auto) (0.0-0.1) K/uL Nucleated RBC % /100WBC Nucleated RBCs # K/uL Sodium (136-145) mmol/L Potassium (3.5-5.1) mmol/L Chloride (98-107) mmol/L Carbon Dioxide (21.0-32.0) mmol/L BUN (7.0-18.0) mg/dL Creatinine (0.6-1.0) mg/dL Est Cr Clr Drug Dosing mL/min Estimated GFR (MDRD) ml/min Glucose (74-106) mg/dL POC Glucose (70-99) mg/dL Calcium (8.5-10.1) mg/dL Total Bilirubin (0.2-1.0) mg/dL AST (15-37) IU/L ALT (14-63) IU/L Alkaline Phosphatase (46-116) U/L Total Protein (6.4-8.2) g/dL Albumin (3.4-5.0) g/dL Globulin (2.6-4.0) g/dL Albumin/Globulin Ratio (0.9-1.6) Vancomycin Trough 16.8 H (5.0-10.0) ug/mL Result Diagrams: 02/18/21 05:50 02/18/21 05:50 Viktor Results Last 24 hrs: Microbiology 02/15/21 12:02 Aerobic Blood Culture - Final Blood - Venous Anaerobic Blood Culture - Preliminary NO GROWTH AFTER 3 DAYS 02/17/21 08:06 Aerobic Blood Culture - Preliminary Blood - Venous - Lab Draw NO GROWTH AFTER 1 DAY Anaerobic Blood Culture - Preliminary NO GROWTH AFTER 1 DAY 02/17/21 08:06 Aerobic Blood Culture - Preliminary Blood - Venous NO GROWTH AFTER 1 DAY Anaerobic Blood Culture - Preliminary NO GROWTH AFTER 1 DAY 02/16/21 12:02 Blood Culture Identification Panel - Preliminary Blood Gram Positive Rods 02/16/21 12:02 Bacteria Detection (PCR) - Final Blood 02/15/21 12:29 Aerobic Blood Culture - Preliminary Blood - Venous - Lab Draw NO GROWTH AFTER 2 DAYS Anaerobic Blood Culture - Preliminary NO GROWTH AFTER 2 DAYS Sepsis Event Note - Evaluation Sepsis Screening Result: No Definite Risk - Focused Exam Vital Signs: Vital Signs Temp Pulse Resp BP Pulse Ox Pulse Ox 02/18/21 08:00 35.9 C L 72 19 124/76 93 L 02/18/21 06:17 90 L 02/18/21 03:27 36.2 C 60 18 115/63 92 L 02/18/21 00:59 36.2 C 68 18 114/58 L 92 L - Problem List & Annotations (1) COVID-19 SNOMED Code(s): 085126829 Code(s): U07.1 - COVID-19 Status: Acute Current Visit: Yes - Problem List Review Problem List Initiated/Reviewed/Updated: Yes - My Orders Last 24 Hours: My Active Orders 02/18/21 12:00 VANCOmycin 1.75 GM/350 ML 1.75 gm Premix Bag 1 bag IV Q8H 02/18/21 21:00 Insulin Glarg,Human.Rec.Analog [LantUS Solostar] 24 units SUBCUT BEDTIME 02/19/21 05:11 CBC WITH AUTO DIFF [HEME] AM COMPREHENSIVE METABOLIC PN,CMP [CHEM] AM 02/20/21 05:11 CBC WITH AUTO DIFF [HEME] AM COMPREHENSIVE METABOLIC PN,CMP [CHEM] AM - Plan Plan:: 30 yo female admitted for COVID-19 pneumonia with acute hypoxic respiratory fail ure Hypoxia: titrated of HHFNC and now on simple NC at 6 L COVID-19: Treating with Remdesivir, Dexamethason, and barcitinib New onset DM: will increase lantus and ssi 1/4 BC growing gram positive rods: I suspect contaminate will continue vancomycin and Levaquin lovenox for DVT prophylaxis.
[2021-02-18] MEDS: Enoxaparin 40 MG/0.4 ML Syringe SUBCUT SCH (16:28)
[2021-02-18] MEDS: Dexamethasone 4 MG Tab PO SCH (16:28)
[2021-02-18] MEDS ORDERED: Insulin Glargine,Human Rec. Analog 100 Units/ML 3 ML Pen SUBCUT SCH (21:00)
[2021-02-18] MEDS: Levofloxacin/Dextrose 5%-Water 750 MG in Premix Bag 1 BAG IV SCH (23:54)
[2021-02-19] MEDS: Albuterol/Ipratropium 4 GM Inhalation Spray INH SCH ×4 (00:09→18:07)
[2021-02-19] MEDS: VANCOmycin 1.75 GM/350 ML 1.75 GM in Premix Bag 1 BAG IV SCH (04:24)
[2021-02-19 07:46] LABS: BLOOD UREA NITROGEN,BUN 15 mg/dL (7.0-18.0); CARBON DIOXIDE,CO2 23.8 mmol/L (21.0-32.0); CHLORIDE,CL 98 mmol/L (98-107); GLUCOSE RANDOM 353 mg/dL (74-106); POTASSIUM,K 4.2 mmol/L (3.5-5.1); SODIUM,NA 134 mmol/L (136-145)
[2021-02-19] MEDS: Insulin Aspart 100 Units/ML 3 ML Pen SUBCUT SCH ×6 (08:57→19:12)
--- NOTE | 2021-02-19 11:08 | PCM.PN ---
- General Info Date of Service: 02/19/21 - Review of Systems Systems Review Comment:: reports shortness of breath is improving - Patient Data Vitals - Most Recent: Last Vital Signs Temp 35.8 C L 02/19/21 09:07 Pulse 67 02/19/21 09:07 Resp 20 02/19/21 09:07 BP 105/55 L 02/19/21 09:07 Pulse Ox 90 L 02/19/21 09:07 Weight - Most Recent: 117.435 kg I&O - Last 24 Hours: Intake & Output 02/18/21 02/19/21 02/19/21 22:59 06:59 14:59 Intake Total 1130 1000 Output Total 1200 Balance 1130 -200 Lab Results Last 24 Hours: Laboratory Results - last 24 hr 02/18/21 02/18/21 02/18/21 Range/Units 10:26 12:44 17:04 WBC (4.0-11.0) K/uL RBC (4.30-5.90) M/uL Hgb (12.0-16.0) g/dL Hct (36.0-46.0) % MCV (80.0-98.0) fL MCH (27.0-32.0) pg MCHC (31.0-37.0) g/dL RDW Std Deviation (28.0-62.0) fl RDW Coeff of Arcenio (11.0-15.0) % Plt Count (150-400) K/uL MPV (7.40-12.00) fL Neut % (Auto) (48.0-80.0) % Lymph % (Auto) (16.0-40.0) % Allen % (Auto) (0.0-15.0) % Eos % (Auto) (0.0-7.0) % Baso % (Auto) (0.0-1.5) % Neut # (Auto) (1.4-5.7) K/uL Lymph # (Auto) (0.6-2.4) K/uL Allen # (Auto) (0.0-0.8) K/uL Eos # (Auto) (0.0-0.7) K/uL Baso # (Auto) (0.0-0.1) K/uL Nucleated RBC % /100WBC Nucleated RBCs # K/uL Sodium (136-145) mmol/L Potassium (3.5-5.1) mmol/L Chloride (98-107) mmol/L Carbon Dioxide (21.0-32.0) mmol/L BUN (7.0-18.0) mg/dL Creatinine (0.6-1.0) mg/dL Est Cr Clr Drug Dosing mL/min Estimated GFR (MDRD) ml/min Glucose (74-106) mg/dL POC Glucose 361 H 360 H (70-99) mg/dL Calcium (8.5-10.1) mg/dL Total Bilirubin (0.2-1.0) mg/dL AST (15-37) IU/L ALT (14-63) IU/L Alkaline Phosphatase (46-116) U/L Total Protein (6.4-8.2) g/dL Albumin (3.4-5.0) g/dL Globulin (2.6-4.0) g/dL Albumin/Globulin Ratio (0.9-1.6) Vancomycin Trough 16.8 H (5.0-10.0) ug/mL 02/18/21 02/19/21 02/19/21 Range/Units 20:30 05:45 05:45 WBC 5.73 (4.0-11.0) K/uL RBC 4.49 (4.30-5.90) M/uL Hgb 13.6 (12.0-16.0) g/dL Hct 41.0 (36.0-46.0) % MCV 91.3 (80.0-98.0) fL MCH 30.3 (27.0-32.0) pg MCHC 33.2 (31.0-37.0) g/dL RDW Std Deviation 41.7 (28.0-62.0) fl RDW Coeff of Arcenio 12 (11.0-15.0) % Plt Count 351 (150-400) K/uL MPV 10.60 (7.40-12.00) fL Neut % (Auto) 77.6 (48.0-80.0) % Lymph % (Auto) 15.9 L (16.0-40.0) % Allen % (Auto) 6.3 (0.0-15.0) % Eos % (Auto) 0.0 (0.0-7.0) % Baso % (Auto) 0.2 (0.0-1.5) % Neut # (Auto) 4.5 (1.4-5.7) K/uL Lymph # (Auto) 0.9 (0.6-2.4) K/uL Allen # (Auto) 0.4 (0.0-0.8) K/uL Eos # (Auto) 0.0 (0.0-0.7) K/uL Baso # (Auto) 0.0 (0.0-0.1) K/uL Nucleated RBC % 0.0 /100WBC Nucleated RBCs # 0 K/uL Sodium 134 L (136-145) mmol/L Potassium 4.2 (3.5-5.1) mmol/L Chloride 98 (98-107) mmol/L Carbon Dioxide 23.8 (21.0-32.0) mmol/L BUN 15 (7.0-18.0) mg/dL Creatinine 0.7 (0.6-1.0) mg/dL Est Cr Clr Drug Dosing 120.70 mL/min Estimated GFR (MDRD) > 60.0 ml/min Glucose 353 H (74-106) mg/dL POC Glucose 399 H (70-99) mg/dL Calcium 8.9 (8.5-10.1) mg/dL Total Bilirubin 0.5 (0.2-1.0) mg/dL AST 54 H (15-37) IU/L ALT 62 (14-63) IU/L Alkaline Phosphatase 58 (46-116) U/L Total Protein 7.2 (6.4-8.2) g/dL Albumin 2.4 L (3.4-5.0) g/dL Globulin 4.8 H (2.6-4.0) g/dL Albumin/Globulin Ratio 0.5 L (0.9-1.6) Vancomycin Trough (5.0-10.0) ug/mL 02/19/21 Range/Units 06:24 WBC (4.0-11.0) K/uL RBC (4.30-5.90) M/uL Hgb (12.0-16.0) g/dL Hct (36.0-46.0) % MCV (80.0-98.0) fL MCH (27.0-32.0) pg MCHC (31.0-37.0) g/dL RDW Std Deviation (28.0-62.0) fl RDW Coeff of Arcenio (11.0-15.0) % Plt Count (150-400) K/uL MPV (7.40-12.00) fL Neut % (Auto) (48.0-80.0) % Lymph % (Auto) (16.0-40.0) % Allen % (Auto) (0.0-15.0) % Eos % (Auto) (0.0-7.0) % Baso % (Auto) (0.0-1.5) % Neut # (Auto) (1.4-5.7) K/uL Lymph # (Auto) (0.6-2.4) K/uL Allen # (Auto) (0.0-0.8) K/uL Eos # (Auto) (0.0-0.7) K/uL Baso # (Auto) (0.0-0.1) K/uL Nucleated RBC % /100WBC Nucleated RBCs # K/uL Sodium (136-145) mmol/L Potassium (3.5-5.1) mmol/L Chloride (98-107) mmol/L Carbon Dioxide (21.0-32.0) mmol/L BUN (7.0-18.0) mg/dL Creatinine (0.6-1.0) mg/dL Est Cr Clr Drug Dosing mL/min Estimated GFR (MDRD) ml/min Glucose (74-106) mg/dL POC Glucose 340 H (70-99) mg/dL Calcium (8.5-10.1) mg/dL Total Bilirubin (0.2-1.0) mg/dL AST (15-37) IU/L ALT (14-63) IU/L Alkaline Phosphatase (46-116) U/L Total Protein (6.4-8.2) g/dL Albumin (3.4-5.0) g/dL Globulin (2.6-4.0) g/dL Albumin/Globulin Ratio (0.9-1.6) Vancomycin Trough (5.0-10.0) ug/mL Viktor Results Last 24 Hours: Microbiology 02/17/21 08:06 Aerobic Blood Culture - Preliminary Blood - Venous - Lab Draw NO GROWTH AFTER 2 DAYS Anaerobic Blood Culture - Preliminary NO GROWTH AFTER 2 DAYS 02/17/21 08:06 Aerobic Blood Culture - Preliminary Blood - Venous NO GROWTH AFTER 2 DAYS Anaerobic Blood Culture - Preliminary NO GROWTH AFTER 2 DAYS 02/16/21 12:02 Blood Culture Identification Panel - Final Blood Diphtheroids 02/15/21 12:29 Aerobic Blood Culture - Preliminary Blood - Venous - Lab Draw NO GROWTH AFTER 3 DAYS Anaerobic Blood Culture - Preliminary NO GROWTH AFTER 3 DAYS 02/15/21 12:02 Aerobic Blood Culture - Final Blood - Venous Anaerobic Blood Culture - Preliminary NO GROWTH AFTER 3 DAYS Med Orders - Current: Current Medications Albuterol/Ipratropium (Albuterol/Ipratropium 4 Gm Inhalation [place]) 0 gm INH QID [facility] Last Admin: 02/19/21 06:21 Dose: 1 puff Documented by: Baricitinib (Baricitinib 2 Mg Tab) 4 mg PO Q24H [facility] Last Admin: 02/18/21 16:28 Dose: 4 mg Documented by: Benzonatate (Benzonatate 100 Mg Cap) 100 mg PO Q6H PRN PRN Reason: Cough Dexamethasone (Dexamethasone 4 Mg Tab) 6 mg PO Q24H [facility] Last Admin: 02/18/21 16:28 Dose: 6 mg Documented by: Dextrose/Water (50% Dextrose In Water 50 Ml Syringe) 50 ml IVPUSH ASDIRECTED PRN PRN Reason: Hypoglycemia Enoxaparin Sodium (Enoxaparin 40 Mg/0.4 Ml Syringe) 40 mg SUBCUT Q24H [facility] Last Admin: 02/18/21 16:28 Dose: 40 mg Documented by: Glucagon (Glucagon,Human Recombinant 1 Mg Vial) 1 mg IM ASDIRECTED PRN PRN Reason: Hypoglycemia Remdesivir 100 mg/ Sodium (Chloride) 100 mls @ 100 mls/hr IV Q24H [facility] Stop: 02/19/21 12:59 Last Admin: 02/18/21 12:24 Dose: 100 mls/hr Documented by: Levofloxacin/Dextrose 750 mg/ (Premix) 150 mls @ 100 mls/hr IV Q24H [facility] Last Admin: 02/18/21 23:54 Dose: 100 mls/hr Documented by: Vancomycin HCl 1.75 gm/ Premix 350 mls @ 200 mls/hr IV Q8H [facility] Last Admin: 02/19/21 04:24 Dose: 200 mls/hr Documented by: Insulin Aspart (Insulin Aspart 100 Units/Ml 3 Ml Pen) 0 unit SUBCUT TIDAC [facility]; Protocol Last Admin: 02/19/21 08:57 Dose: 12 units Documented by: Insulin Aspart (Insulin Aspart 100 Units/Ml 3 Ml Pen) 10 unit SUBCUT TIDAC [facility] Insulin Glargine (Insulin Glargine,Human Rec. Analog 100 Units/Ml 3 Ml Pen) 30 units SUBCUT BEDTIME [facility] Sodium Chloride (Sodium Chloride 0.9% 10 Ml Syringe) 10 ml FLUSH ASDIRECTED PRN PRN Reason: Keep Vein Open Last Admin: 02/15/21 12:31 Dose: 10 ml Documented by: Sodium Chloride (Sodium Chloride 0.9% 2.5 Ml Syringe) 2.5 ml FLUSH ASDIRECTED PRN PRN Reason: Keep Vein Open Last Admin: 02/15/21 12:31 Dose: 2.5 ml Documented by: Vancomycin HCl (Pharmacy To Dose - Vancomycin) 1 dose .XX ASDIRECTED [facility] Discontinued Medications Dexamethasone (Dexamethasone 10 Mg/Ml Sdv) 6 mg IVPUSH ONETIME ONE Stop: 02/15/21 12:04 Last Admin: 02/15/21 12:30 Dose: 6 mg Documented by: Dextrose/Water (50% Dextrose In Water 50 Ml Syringe) 50 ml IVPUSH ASDIRECTED PRN PRN Reason: Hypoglycemia Glucagon (Glucagon,Human Recombinant 1 Mg Vial) 1 mg IM ASDIRECTED PRN PRN Reason: Hypoglycemia Remdesivir 200 mg/ Sodium (Chloride) 250 mls @ 250 mls/hr IV ONETIME ONE Stop: 02/15/21 12:04 Last Admin: 02/15/21 14:02 Dose: Not Given Documented by: Remdesivir 200 mg/ Sodium (Chloride) 250 mls @ 250 mls/hr IV ONETIME ONE Stop: 02/15/21 13:29 Last Admin: 02/15/21 14:01 Dose: 250 mls/hr Documented by: Vancomycin HCl 2 gm/ Premix 400 mls @ 200 mls/hr IV ONETIME [facility] Last Admin: 02/17/21 02:05 Dose: 200 mls/hr Documented by: Vancomycin HCl 1.75 gm/ Premix 350 mls @ 200 mls/hr IV Q8H [facility] Last Admin: 02/18/21 13:46 Dose: Not Given Documented by: Insulin Aspart (Insulin Aspart 100 Units/Ml 3 Ml Pen) 8 unit SUBCUT NOW ONE Stop: 02/15/21 21:51 Last Admin: 02/15/21 21:54 Dose: 8 units Documented by: Insulin Aspart (Insulin Aspart 100 Units/Ml 3 Ml Pen) Confirm Administered Dose 300 unit .ROUTE .STK-MED ONE Stop: 02/15/21 21:44 Last Admin: 02/15/21 22:09 Dose: Not Given Documented by: Insulin Aspart (Insulin Aspart 100 Units/Ml 3 Ml Pen) 4 unit SUBCUT TIDAC [facility] Last Admin: 02/18/21 18:21 Dose: 4 units Documented by: Insulin Glargine (Insulin Glargine,Human Rec. Analog 100 Units/Ml 3 Ml Pen) 7 units SUBCUT BEDTIME [facility] Last Admin: 02/16/21 20:56 Dose: 7 units Documented by: Insulin Glargine (Insulin Glargine,Human Rec. Analog 100 Units/Ml 3 Ml Pen) 12 units SUBCUT BEDTIME [facility] Insulin Glargine (Insulin Glargine,Human Rec. Analog 100 Units/Ml 3 Ml Pen) 18 units SUBCUT BEDTIME [facility] Last Admin: 02/17/21 22:00 Dose: 18 units Documented by: Insulin Glargine (Insulin Glargine,Human Rec. Analog 100 Units/Ml 3 Ml Pen) 24 units SUBCUT BEDTIME [facility] Last Admin: 02/18/21 20:40 Dose: 24 units Documented by: Iopamidol (Iopamidol 755 Mg/Ml 500 Ml Multipack Bottle) 100 ml IVPUSH ONETIME ONE Stop: 02/15/21 15:48 Last Admin: 02/15/21 15:48 Dose: 100 ml Documented by: Ketorolac Tromethamine (Ketorolac 30 Mg/Ml Sdv) 30 mg IVPUSH ONETIME ONE Stop: 02/15/21 11:53 Last Admin: 02/15/21 12:31 Dose: 30 mg Documented by: - Exam General: Alert, Oriented Neck: Supple Lungs: Clear to Auscultation, Normal Respiratory Effort Cardiovascular: Regular Rate, Regular Rhythm GI/Abdominal Exam: Normal Bowel Sounds, Soft, Non-Tender Extremities: Non-Tender, No Pedal Edema Skin: Warm, Dry, Intact Neurological: No New Focal Deficit - Patient Data Lab Results Last 24 hrs: Laboratory Results - last 24 hr 02/18/21 02/18/21 02/18/21 Range/Units 10:26 12:44 17:04 WBC (4.0-11.0) K/uL RBC (4.30-5.90) M/uL Hgb (12.0-16.0) g/dL Hct (36.0-46.0) % MCV (80.0-98.0) fL MCH (27.0-32.0) pg MCHC (31.0-37.0) g/dL RDW Std Deviation (28.0-62.0) fl RDW Coeff of Arcenio (11.0-15.0) % Plt Count (150-400) K/uL MPV (7.40-12.00) fL Neut % (Auto) (48.0-80.0) % Lymph % (Auto) (16.0-40.0) % Allen % (Auto) (0.0-15.0) % Eos % (Auto) (0.0-7.0) % Baso % (Auto) (0.0-1.5) % Neut # (Auto) (1.4-5.7) K/uL Lymph # (Auto) (0.6-2.4) K/uL Allen # (Auto) (0.0-0.8) K/uL Eos # (Auto) (0.0-0.7) K/uL Baso # (Auto) (0.0-0.1) K/uL Nucleated RBC % /100WBC Nucleated RBCs # K/uL Sodium (136-145) mmol/L Potassium (3.5-5.1) mmol/L Chloride (98-107) mmol/L Carbon Dioxide (21.0-32.0) mmol/L BUN (7.0-18.0) mg/dL Creatinine (0.6-1.0) mg/dL Est Cr Clr Drug Dosing mL/min Estimated GFR (MDRD) ml/min Glucose (74-106) mg/dL POC Glucose 361 H 360 H (70-99) mg/dL Calcium (8.5-10.1) mg/dL Total Bilirubin (0.2-1.0) mg/dL AST (15-37) IU/L ALT (14-63) IU/L Alkaline Phosphatase (46-116) U/L Total Protein (6.4-8.2) g/dL Albumin (3.4-5.0) g/dL Globulin (2.6-4.0) g/dL Albumin/Globulin Ratio (0.9-1.6) Vancomycin Trough 16.8 H (5.0-10.0) ug/mL 02/18/21 02/19/21 02/19/21 Range/Units 20:30 05:45 05:45 WBC 5.73 (4.0-11.0) K/uL RBC 4.49 (4.30-5.90) M/uL Hgb 13.6 (12.0-16.0) g/dL Hct 41.0 (36.0-46.0) % MCV 91.3 (80.0-98.0) fL MCH 30.3 (27.0-32.0) pg MCHC 33.2 (31.0-37.0) g/dL RDW Std Deviation 41.7 (28.0-62.0) fl RDW Coeff of Arcenio 12 (11.0-15.0) % Plt Count 351 (150-400) K/uL MPV 10.60 (7.40-12.00) fL Neut % (Auto) 77.6 (48.0-80.0) % Lymph % (Auto) 15.9 L (16.0-40.0) % Allen % (Auto) 6.3 (0.0-15.0) % Eos % (Auto) 0.0 (0.0-7.0) % Baso % (Auto) 0.2 (0.0-1.5) % Neut # (Auto) 4.5 (1.4-5.7) K/uL Lymph # (Auto) 0.9 (0.6-2.4) K/uL Allen # (Auto) 0.4 (0.0-0.8) K/uL Eos # (Auto) 0.0 (0.0-0.7) K/uL Baso # (Auto) 0.0 (0.0-0.1) K/uL Nucleated RBC % 0.0 /100WBC Nucleated RBCs # 0 K/uL Sodium 134 L (136-145) mmol/L Potassium 4.2 (3.5-5.1) mmol/L Chloride 98 (98-107) mmol/L Carbon Dioxide 23.8 (21.0-32.0) mmol/L BUN 15 (7.0-18.0) mg/dL Creatinine 0.7 (0.6-1.0) mg/dL Est Cr Clr Drug Dosing 120.70 mL/min Estimated GFR (MDRD) > 60.0 ml/min Glucose 353 H (74-106) mg/dL POC Glucose 399 H (70-99) mg/dL Calcium 8.9 (8.5-10.1) mg/dL Total Bilirubin 0.5 (0.2-1.0) mg/dL AST 54 H (15-37) IU/L ALT 62 (14-63) IU/L Alkaline Phosphatase 58 (46-116) U/L Total Protein 7.2 (6.4-8.2) g/dL Albumin 2.4 L (3.4-5.0) g/dL Globulin 4.8 H (2.6-4.0) g/dL Albumin/Globulin Ratio 0.5 L (0.9-1.6) Vancomycin Trough (5.0-10.0) ug/mL 02/19/21 Range/Units 06:24 WBC (4.0-11.0) K/uL RBC (4.30-5.90) M/uL Hgb (12.0-16.0) g/dL Hct (36.0-46.0) % MCV (80.0-98.0) fL MCH (27.0-32.0) pg MCHC (31.0-37.0) g/dL RDW Std Deviation (28.0-62.0) fl RDW Coeff of Arcenio (11.0-15.0) % Plt Count (150-400) K/uL MPV (7.40-12.00) fL Neut % (Auto) (48.0-80.0) % Lymph % (Auto) (16.0-40.0) % Allen % (Auto) (0.0-15.0) % Eos % (Auto) (0.0-7.0) % Baso % (Auto) (0.0-1.5) % Neut # (Auto) (1.4-5.7) K/uL Lymph # (Auto) (0.6-2.4) K/uL Allen # (Auto) (0.0-0.8) K/uL Eos # (Auto) (0.0-0.7) K/uL Baso # (Auto) (0.0-0.1) K/uL Nucleated RBC % /100WBC Nucleated RBCs # K/uL Sodium (136-145) mmol/L Potassium (3.5-5.1) mmol/L Chloride (98-107) mmol/L Carbon Dioxide (21.0-32.0) mmol/L BUN (7.0-18.0) mg/dL Creatinine (0.6-1.0) mg/dL Est Cr Clr Drug Dosing mL/min Estimated GFR (MDRD) ml/min Glucose (74-106) mg/dL POC Glucose 340 H (70-99) mg/dL Calcium (8.5-10.1) mg/dL Total Bilirubin (0.2-1.0) mg/dL AST (15-37) IU/L ALT (14-63) IU/L Alkaline Phosphatase (46-116) U/L Total Protein (6.4-8.2) g/dL Albumin (3.4-5.0) g/dL Globulin (2.6-4.0) g/dL Albumin/Globulin Ratio (0.9-1.6) Vancomycin Trough (5.0-10.0) ug/mL Result Diagrams: 02/19/21 05:45 02/19/21 05:45 Viktor Results Last 24 hrs: Microbiology 02/17/21 08:06 Aerobic Blood Culture - Preliminary Blood - Venous - Lab Draw NO GROWTH AFTER 2 DAYS Anaerobic Blood Culture - Preliminary NO GROWTH AFTER 2 DAYS 02/17/21 08:06 Aerobic Blood Culture - Preliminary Blood - Venous NO GROWTH AFTER 2 DAYS Anaerobic Blood Culture - Preliminary NO GROWTH AFTER 2 DAYS 02/16/21 12:02 Blood Culture Identification Panel - Final Blood Diphtheroids 02/15/21 12:29 Aerobic Blood Culture - Preliminary Blood - Venous - Lab Draw NO GROWTH AFTER 3 DAYS Anaerobic Blood Culture - Preliminary NO GROWTH AFTER 3 DAYS 02/15/21 12:02 Aerobic Blood Culture - Final Blood - Venous Anaerobic Blood Culture - Preliminary NO GROWTH AFTER 3 DAYS Sepsis Event Note - Evaluation Sepsis Screening Result: No Definite Risk - Focused Exam Vital Signs: Vital Signs Temp Pulse Resp BP Pulse Ox 02/19/21 09:07 35.8 C L 67 20 105/55 L 90 L 02/19/21 08:00 35.7 C L 67 20 122/70 91 L 02/19/21 03:47 36.1 C 54 L 16 132/79 95 02/18/21 23:36 36.2 C 58 L 16 109/59 L 94 L - Problem List & Annotations (1) COVID-19 SNOMED Code(s): 270706932 Code(s): U07.1 - COVID-19 Status: Acute Current Visit: Yes - Problem List Review Problem List Initiated/Reviewed/Updated: Yes - My Orders Last 24 Hours: My Active Orders 02/18/21 12:00 VANCOmycin 1.75 GM/350 ML 1.75 gm Premix Bag 1 bag IV Q8H 02/18/21 23:33 Deblocker Discontinue [Cardiac Monitoring Discontinue] [RC] Click to Edit 02/19/21 11:30 Insulin Aspart [NovoLOG] 10 unit SUBCUT TIDAC 02/19/21 21:00 Insulin Glarg,Human.Rec.Analog [LantUS Solostar] 30 units SUBCUT BEDTIME 02/20/21 05:11 CBC WITH AUTO DIFF [HEME] AM COMPREHENSIVE METABOLIC PN,CMP [CHEM] AM 02/22/21 11:30 VANCOMYCIN TROUGH [CHEM] Timed - Plan Plan:: 30 yo female admitted for COVID-19 pneumonia with acute hypoxic respiratory failure Hypoxia: on 5 L NC COVID-19: Treating with Remdesivir, Dexamethason, and barcitinib New onset DM: will increase lantus and ssi 1/4 BC growing dipthirods: I suspect contaminate will stop antibiotics lovenox for DVT prophylaxis.
[2021-02-19] MEDS: REMDESIVIR 100 MG in Sodium Chloride 0.9% 100 ML IV SCH (13:49)
[2021-02-19] MEDS: Dexamethasone 4 MG Tab PO SCH (14:52)
[2021-02-19] MEDS: Enoxaparin 40 MG/0.4 ML Syringe SUBCUT SCH (14:52)
[2021-02-19] MEDS: Insulin Glargine,Human Rec. Analog 100 Units/ML 3 ML Pen SUBCUT SCH (20:08)
[2021-02-20] MEDS: Albuterol/Ipratropium 4 GM Inhalation Spray INH SCH ×4 (00:06→17:45)
[2021-02-20 07:46] LABS: BLOOD UREA NITROGEN,BUN 19 mg/dL (7.0-18.0); CARBON DIOXIDE,CO2 30.3 mmol/L (21.0-32.0); CHLORIDE,CL 100 mmol/L (98-107); GLUCOSE RANDOM 381 mg/dL (74-106); POTASSIUM,K 4.2 mmol/L (3.5-5.1); SODIUM,NA 136 mmol/L (136-145)
[2021-02-20] MEDS: Insulin Aspart 100 Units/ML 3 ML Pen SUBCUT SCH ×6 (08:12→17:42)
[2021-02-20] MEDS ORDERED: 50% Dextrose in Water 50 ML Syringe IVPUSH PRN (09:52)
[2021-02-20] MEDS: Enoxaparin 40 MG/0.4 ML Syringe SUBCUT SCH ×2 (10:29→21:15)
[2021-02-20] MEDS: Insulin Glargine,Human Rec. Analog 100 Units/ML 3 ML Pen SUBCUT SCH ×2 (10:33→21:17)
[2021-02-20] MEDS: Dexamethasone 4 MG Tab PO SCH (15:24)
--- NOTE | 2021-02-20 19:17 | PCM.PN ---
- General Info Date of Service: 02/20/21 Subjective Update: Pt is doing well from a respiratory standpoint. Her oxygen requirements have improved. She is only requiring 2 L oxygen. Her blood glucose is still elevated due to the fact that she is eating whatever she feels like. - Patient Data Vitals - Most Recent: Last Vital Signs Temp 96.6 F L 02/20/21 16:00 Pulse 71 02/20/21 16:00 Resp 22 H 02/20/21 16:00 BP 117/58 L 02/20/21 16:00 Pulse Ox 93 L 02/20/21 16:00 Weight - Most Recent: 258 lb 14.4 oz I&O - Last 24 Hours: Intake & Output 02/20/21 02/20/21 02/20/21 06:59 14:59 22:59 Intake Total 200 Output Total 1600 Balance -1400 Lab Results Last 24 Hours: Laboratory Results - last 24 hr 02/20/21 02/20/21 02/20/21 Range/Units 06:13 06:13 06:14 WBC 6.43 (4.0-11.0) K/uL RBC 4.80 (4.30-5.90) M/uL Hgb 14.6 (12.0-16.0) g/dL Hct 43.5 (36.0-46.0) % MCV 90.6 (80.0-98.0) fL MCH 30.4 (27.0-32.0) pg MCHC 33.6 (31.0-37.0) g/dL RDW Std Deviation 40.3 (28.0-62.0) fl RDW Coeff of Arcenio 12 (11.0-15.0) % Plt Count 393 (150-400) K/uL MPV 10.70 (7.40-12.00) fL Neut % (Auto) 77.7 (48.0-80.0) % Lymph % (Auto) 15.1 L (16.0-40.0) % [place] % (Auto) 7.0 (0.0-15.0) % Eos % (Auto) 0.0 (0.0-7.0) % Baso % (Auto) 0.2 (0.0-1.5) % Neut # (Auto) 5.0 (1.4-5.7) K/uL Lymph # (Auto) 1.0 (0.6-2.4) K/uL [place] # (Auto) 0.5 (0.0-0.8) K/uL Eos # (Auto) 0.0 (0.0-0.7) K/uL Baso # (Auto) 0.0 (0.0-0.1) K/uL Nucleated RBC % 0.0 /100WBC Nucleated RBCs # 0 K/uL Sodium 136 (136-145) mmol/L Potassium 4.2 (3.5-5.1) mmol/L Chloride 100 (98-107) mmol/L Carbon Dioxide 30.3 (21.0-32.0) mmol/L BUN 19 H (7.0-18.0) mg/dL Creatinine 0.9 (0.6-1.0) mg/dL Est Cr Clr Drug Dosing 93.88 mL/min Estimated GFR (MDRD) > 60.0 ml/min Glucose 381 H (74-106) mg/dL POC Glucose 364 H (70-99) mg/dL Calcium 9.0 (8.5-10.1) mg/dL Total Bilirubin 0.5 (0.2-1.0) mg/dL AST 51 H (15-37) IU/L ALT 84 H (14-63) IU/L Alkaline Phosphatase 64 (46-116) U/L Total Protein 7.5 (6.4-8.2) g/dL Albumin 2.6 L (3.4-5.0) g/dL Globulin 4.9 H (2.6-4.0) g/dL Albumin/Globulin Ratio 0.5 L (0.9-1.6) 02/20/21 02/20/21 02/20/21 Range/Units 10:34 11:41 17:38 WBC (4.0-11.0) K/uL RBC (4.30-5.90) M/uL Hgb (12.0-16.0) g/dL Hct (36.0-46.0) % MCV (80.0-98.0) fL MCH (27.0-32.0) pg MCHC (31.0-37.0) g/dL RDW Std Deviation (28.0-62.0) fl RDW Coeff of Arcenio (11.0-15.0) % Plt Count (150-400) K/uL MPV (7.40-12.00) fL Neut % (Auto) (48.0-80.0) % Lymph % (Auto) (16.0-40.0) % [place] % (Auto) (0.0-15.0) % Eos % (Auto) (0.0-7.0) % Baso % (Auto) (0.0-1.5) % Neut # (Auto) (1.4-5.7) K/uL Lymph # (Auto) (0.6-2.4) K/uL [place] # (Auto) (0.0-0.8) K/uL Eos # (Auto) (0.0-0.7) K/uL Baso # (Auto) (0.0-0.1) K/uL Nucleated RBC % /100WBC Nucleated RBCs # K/uL Sodium (136-145) mmol/L Potassium (3.5-5.1) mmol/L Chloride (98-107) mmol/L Carbon Dioxide (21.0-32.0) mmol/L BUN (7.0-18.0) mg/dL Creatinine (0.6-1.0) mg/dL Est Cr Clr Drug Dosing mL/min Estimated GFR (MDRD) ml/min Glucose (74-106) mg/dL POC Glucose 375 H 364 H 243 H (70-99) mg/dL Calcium (8.5-10.1) mg/dL Total Bilirubin (0.2-1.0) mg/dL AST (15-37) IU/L ALT (14-63) IU/L Alkaline Phosphatase (46-116) U/L Total Protein (6.4-8.2) g/dL Albumin (3.4-5.0) g/dL Globulin (2.6-4.0) g/dL Albumin/Globulin Ratio (0.9-1.6) Viktor Results Last 24 Hours: Microbiology 02/15/21 12:29 Aerobic Blood Culture - Final Blood - Venous - Lab Draw NO GROWTH AFTER 5 DAYS Anaerobic Blood Culture - Final NO GROWTH AFTER 5 DAYS 02/15/21 12:02 Aerobic Blood Culture - Final Blood - Venous Anaerobic Blood Culture - Final NO GROWTH AFTER 5 DAYS 02/17/21 08:06 Aerobic Blood Culture - Preliminary Blood - Venous - Lab Draw NO GROWTH AFTER 3 DAYS Anaerobic Blood Culture - Preliminary NO GROWTH AFTER 3 DAYS 02/17/21 08:06 Aerobic Blood Culture - Preliminary Blood - Venous NO GROWTH AFTER 3 DAYS Anaerobic Blood Culture - Preliminary NO GROWTH AFTER 3 DAYS Med Orders - Current: Current Medications Albuterol/Ipratropium (Albuterol/Ipratropium 4 Gm Inhalation [place]) 0 gm INH QID [facility] Last Admin: 02/20/21 17:45 Dose: 1 puff Documented by: Baricitinib (Baricitinib 2 Mg Tab) 4 mg PO Q24H [facility] Last Admin: 02/20/21 15:24 Dose: 4 mg Documented by: Benzonatate (Benzonatate 100 Mg Cap) 100 mg PO Q6H PRN PRN Reason: Cough Dexamethasone (Dexamethasone 4 Mg Tab) 6 mg PO Q24H [facility] Last Admin: 02/20/21 15:24 Dose: 6 mg Documented by: Dextrose/Water (50% Dextrose In Water 50 Ml Syringe) 50 ml IVPUSH ASDIRECTED PRN PRN Reason: Hypoglycemia Enoxaparin Sodium (Enoxaparin 40 Mg/0.4 Ml Syringe) 40 mg SUBCUT Q12H [facility] Last Admin: 02/20/21 10:29 Dose: 40 mg Documented by: Glucagon (Glucagon,Human Recombinant 1 Mg Vial) 1 mg IM ASDIRECTED PRN PRN Reason: Hypoglycemia Insulin Aspart (Insulin Aspart 100 Units/Ml 3 Ml Pen) 0 unit SUBCUT TIDAC [facility]; Protocol Last Admin: 02/20/21 17:42 Dose: 6 units Documented by: Insulin Aspart (Insulin Aspart 100 Units/Ml 3 Ml Pen) 10 unit SUBCUT TIDAC [facility] Last Admin: 02/20/21 17:40 Dose: 10 units Documented by: Insulin Glargine (Insulin Glargine,Human Rec. Analog 100 Units/Ml 3 Ml Pen) 30 units SUBCUT BEDTIME [facility] Last Admin: 02/19/21 20:08 Dose: 30 units Documented by: Insulin Glargine (Insulin Glargine,Human Rec. Analog 100 Units/Ml 3 Ml Pen) 20 units SUBCUT DAILY [facility] Last Admin: 02/20/21 10:33 Dose: 20 units Documented by: Sodium Chloride (Sodium Chloride 0.9% 10 Ml Syringe) 10 ml FLUSH ASDIRECTED PRN PRN Reason: Keep Vein Open Last Admin: 02/15/21 12:31 Dose: 10 ml Documented by: Sodium Chloride (Sodium Chloride 0.9% 2.5 Ml Syringe) 2.5 ml FLUSH ASDIRECTED PRN PRN Reason: Keep Vein Open Last Admin: 02/15/21 12:31 Dose: 2.5 ml Documented by: Discontinued Medications Dexamethasone (Dexamethasone 10 Mg/Ml Sdv) 6 mg IVPUSH ONETIME ONE Stop: 02/15/21 12:04 Last Admin: 02/15/21 12:30 Dose: 6 mg Documented by: Dextrose/Water (50% Dextrose In Water 50 Ml Syringe) 50 ml IVPUSH ASDIRECTED PRN PRN Reason: Hypoglycemia Dextrose/Water (50% Dextrose In Water 50 Ml Syringe) 50 ml IVPUSH ASDIRECTED PRN PRN Reason: Hypoglycemia Enoxaparin Sodium (Enoxaparin 40 Mg/0.4 Ml Syringe) 40 mg SUBCUT Q24H [facility] Last Admin: 02/19/21 14:52 Dose: 40 mg Documented by: Glucagon (Glucagon,Human Recombinant 1 Mg Vial) 1 mg IM ASDIRECTED PRN PRN Reason: Hypoglycemia Remdesivir 200 mg/ Sodium (Chloride) 250 mls @ 250 mls/hr IV ONETIME ONE Stop: 02/15/21 12:04 Last Admin: 02/15/21 14:02 Dose: Not Given Documented by: Remdesivir 200 mg/ Sodium (Chloride) 250 mls @ 250 mls/hr IV ONETIME ONE Stop: 02/15/21 13:29 Last Admin: 02/15/21 14:01 Dose: 250 mls/hr Documented by: Remdesivir 100 mg/ Sodium (Chloride) 100 mls @ 100 mls/hr IV Q24H [facility] Stop: 02/19/21 12:59 Last Admin: 02/19/21 13:49 Dose: 100 mls/hr Documented by: Levofloxacin/Dextrose 750 mg/ (Premix) 150 mls @ 100 mls/hr IV Q24H [facility] Last Admin: 02/18/21 23:54 Dose: 100 mls/hr Documented by: Vancomycin HCl 2 gm/ Premix 400 mls @ 200 mls/hr IV ONETIME [facility] Last Admin: 02/17/21 02:05 Dose: 200 mls/hr Documented by: Vancomycin HCl 1.75 gm/ Premix 350 mls @ 200 mls/hr IV Q8H [facility] Last Admin: 02/18/21 13:46 Dose: Not Given Documented by: Vancomycin HCl 1.75 gm/ Premix 350 mls @ 200 mls/hr IV Q8H [facility] Last Admin: 02/19/21 04:24 Dose: 200 mls/hr Documented by: Insulin Aspart (Insulin Aspart 100 Units/Ml 3 Ml Pen) 8 unit SUBCUT NOW ONE Stop: 02/15/21 21:51 Last Admin: 02/15/21 21:54 Dose: 8 units Documented by: Insulin Aspart (Insulin Aspart 100 Units/Ml 3 Ml Pen) Confirm Administered Dose 300 unit .ROUTE .STK-MED ONE Stop: 02/15/21 21:44 Last Admin: 02/15/21 22:09 Dose: Not Given Documented by: Insulin Aspart (Insulin Aspart 100 Units/Ml 3 Ml Pen) 4 unit SUBCUT TIDAC [facility] Last Admin: 02/19/21 19:12 Dose: Not Given Documented by: Insulin Glargine (Insulin Glargine,Human Rec. Analog 100 Units/Ml 3 Ml Pen) 7 units SUBCUT BEDTIME [facility] Last Admin: 02/16/21 20:56 Dose: 7 units Documented by: Insulin Glargine (Insulin Glargine,Human Rec. Analog 100 Units/Ml 3 Ml Pen) 12 units SUBCUT BEDTIME [facility] Insulin Glargine (Insulin Glargine,Human Rec. Analog 100 Units/Ml 3 Ml Pen) 18 units SUBCUT BEDTIME [facility] Last Admin: 02/17/21 22:00 Dose: 18 units Documented by: Insulin Glargine (Insulin Glargine,Human Rec. Analog 100 Units/Ml 3 Ml Pen) 24 units SUBCUT BEDTIME [facility] Last Admin: 02/18/21 20:40 Dose: 24 units Documented by: Iopamidol (Iopamidol 755 Mg/Ml 500 Ml Multipack Bottle) 100 ml IVPUSH ONETIME ONE Stop: 02/15/21 15:48 Last Admin: 02/15/21 15:48 Dose: 100 ml Documented by: Ketorolac Tromethamine (Ketorolac 30 Mg/Ml Sdv) 30 mg IVPUSH ONETIME ONE Stop: 02/15/21 11:53 Last Admin: 11/19/21 12:31 Dose: 30 mg Documented by: - Exam Physical Findings Comments:: General: Obese young female. In no distress CVS:S1S2 appreciated. RRR lungs: clear with no rales or wheezes pa: soft, obese, non tender. bowel sounds present ext: no clubbing, cyanosis or edema neuro: no focal deficits psych: stable mood and affect. - Patient Data Lab Results Last 24 hrs: Laboratory Results - last 24 hr 02/20/21 02/20/21 02/20/21 Range/Units 06:13 06:13 06:14 WBC 6.43 (4.0-11.0) K/uL RBC 4.80 (4.30-5.90) M/uL Hgb 14.6 (12.0-16.0) g/dL Hct 43.5 (36.0-46.0) % MCV 90.6 (80.0-98.0) fL MCH 30.4 (27.0-32.0) pg MCHC 33.6 (31.0-37.0) g/dL RDW Std Deviation 40.3 (28.0-62.0) fl RDW Coeff of Arcenio 12 (11.0-15.0) % Plt Count 393 (150-400) K/uL MPV 10.70 (7.40-12.00) fL Neut % (Auto) 77.7 (48.0-80.0) % Lymph % (Auto) 15.1 L (16.0-40.0) % [place] % (Auto) 7.0 (0.0-15.0) % Eos % (Auto) 0.0 (0.0-7.0) % Baso % (Auto) 0.2 (0.0-1.5) % Neut # (Auto) 5.0 (1.4-5.7) K/uL Lymph # (Auto) 1.0 (0.6-2.4) K/uL [place] # (Auto) 0.5 (0.0-0.8) K/uL Eos # (Auto) 0.0 (0.0-0.7) K/uL Baso # (Auto) 0.0 (0.0-0.1) K/uL Nucleated RBC % 0.0 /100WBC Nucleated RBCs # 0 K/uL Sodium 136 (136-145) mmol/L Potassium 4.2 (3.5-5.1) mmol/L Chloride 100 (98-107) mmol/L Carbon Dioxide 30.3 (21.0-32.0) mmol/L BUN 19 H (7.0-18.0) mg/dL Creatinine 0.9 (0.6-1.0) mg/dL Est Cr Clr Drug Dosing 93.88 mL/min Estimated GFR (MDRD) > 60.0 ml/min Glucose 381 H (74-106) mg/dL POC Glucose 364 H (70-99) mg/dL Calcium 9.0 (8.5-10.1) mg/dL Total Bilirubin 0.5 (0.2-1.0) mg/dL AST 51 H (15-37) IU/L ALT 84 H (14-63) IU/L Alkaline Phosphatase 64 (46-116) U/L Total Protein 7.5 (6.4-8.2) g/dL Albumin 2.6 L (3.4-5.0) g/dL Globulin 4.9 H (2.6-4.0) g/dL Albumin/Globulin Ratio 0.5 L (0.9-1.6) 02/20/21 02/20/21 02/20/21 Range/Units 10:34 11:41 17:38 WBC (4.0-11.0) K/uL RBC (4.30-5.90) M/uL Hgb (12.0-16.0) g/dL Hct (36.0-46.0) % MCV (80.0-98.0) fL MCH (27.0-32.0) pg MCHC (31.0-37.0) g/dL RDW Std Deviation (28.0-62.0) fl RDW Coeff of Arcenio (11.0-15.0) % Plt Count (150-400) K/uL MPV (7.40-12.00) fL Neut % (Auto) (48.0-80.0) % Lymph % (Auto) (16.0-40.0) % [place] % (Auto) (0.0-15.0) % Eos % (Auto) (0.0-7.0) % Baso % (Auto) (0.0-1.5) % Neut # (Auto) (1.4-5.7) K/uL Lymph # (Auto) (0.6-2.4) K/uL [place] # (Auto) (0.0-0.8) K/uL Eos # (Auto) (0.0-0.7) K/uL Baso # (Auto) (0.0-0.1) K/uL Nucleated RBC % /100WBC Nucleated RBCs # K/uL Sodium (136-145) mmol/L Potassium (3.5-5.1) mmol/L Chloride (98-107) mmol/L Carbon Dioxide (21.0-32.0) mmol/L BUN (7.0-18.0) mg/dL Creatinine (0.6-1.0) mg/dL Est Cr Clr Drug Dosing mL/min Estimated GFR (MDRD) ml/min Glucose (74-106) mg/dL POC Glucose 375 H 364 H 243 H (70-99) mg/dL Calcium (8.5-10.1) mg/dL Total Bilirubin (0.2-1.0) mg/dL AST (15-37) IU/L ALT (14-63) IU/L Alkaline Phosphatase (46-116) U/L Total Protein (6.4-8.2) g/dL Albumin (3.4-5.0) g/dL Globulin (2.6-4.0) g/dL Albumin/Globulin Ratio (0.9-1.6) Result Diagrams: 02/20/21 06:13 02/20/21 06:13 Viktor Results Last 24 hrs: Microbiology 02/15/21 12:29 Aerobic Blood Culture - Final Blood - Venous - Lab Draw NO GROWTH AFTER 5 DAYS Anaerobic Blood Culture - Final NO GROWTH AFTER 5 DAYS 02/15/21 12:02 Aerobic Blood Culture - Final Blood - Venous Anaerobic Blood Culture - Final NO GROWTH AFTER 5 DAYS 02/17/21 08:06 Aerobic Blood Culture - Preliminary Blood - Venous - Lab Draw NO GROWTH AFTER 3 DAYS Anaerobic Blood Culture - Preliminary NO GROWTH AFTER 3 DAYS 02/17/21 08:06 Aerobic Blood Culture - Preliminary Blood - Venous NO GROWTH AFTER 3 DAYS Anaerobic Blood Culture - Preliminary NO GROWTH AFTER 3 DAYS Sepsis Event Note - Evaluation Sepsis Screening Result: No Definite Risk - Focused Exam Vital Signs: Vital Signs Temp Pulse Resp BP Pulse Ox 02/20/21 16:00 96.6 F L 71 22 H 117/58 L 93 L 02/20/21 12:00 96.2 F L 85 20 108/54 L 92 L 02/20/21 10:54 90 L 02/20/21 10:00 91 L 02/20/21 09:00 98.3 F 75 16 102/55 L 86 L - Problem List & Annotations (1) New onset type 2 diabetes mellitus SNOMED Code(s): 36794817 Code(s): E11.9 - TYPE 2 DIABETES MELLITUS WITHOUT COMPLICATIONS Status: Acute Current Visit: Yes (2) COVID-19 SNOMED Code(s): 596247792 Code(s): U07.1 - COVID-19 Status: Acute Current Visit: Yes (3) Morbid obesity SNOMED Code(s): 519655911 Code(s): E66.01 - MORBID (SEVERE) OBESITY DUE TO EXCESS CALORIES Status: Acute Current Visit: Yes - Problem List Review Problem List Initiated/Reviewed/Updated: Yes - My Orders Last 24 Hours: My Active Orders 02/20/21 09:52 Dextrose 50% in Water 50 ml IVPUSH ASDIRECTED PRN 02/20/21 10:00 Enoxaparin [Lovenox] 40 mg SUBCUT Q12H Insulin Glarg,Human.Rec.Analog [LantUS Solostar] 20 units SUBCUT DAILY - Assessment Assessment:: Acute hypoxemic respiratory failure Much improved. Pt is only on 2 L NC. Continue to wean off oxygen. Incentive spirometry, nebs prn. Proning as tolerated. Covid pneumonia On dexamethasone and Baricitinib Newly diagnosed T2DM Diabetic education Will need diabetic supplies at time of discharge. Morbid obesity Will need lifestyle changes. Disposition DC home tomorrow. Full code status - Plan Plan:: 30 yo female admitted for COVID-19 pneumonia with acute hypoxic respiratory failure Hypoxia: on 5 L NC COVID-19: Treating with Remdesivir, Dexamethason, and barcitinib New onset DM: will increase lantus and ssi 1/4 BC growing dipthirods: I suspect contaminate will stop antibiotics lovenox for DVT prophylaxis.
[2021-02-21] MEDS: Albuterol/Ipratropium 4 GM Inhalation Spray INH SCH ×2 (00:29→07:52)
[2021-02-21] MEDS: Insulin Aspart 100 Units/ML 3 ML Pen SUBCUT SCH ×2 (07:53→07:54)
[2021-02-21] MEDS: Insulin Glargine,Human Rec. Analog 100 Units/ML 3 ML Pen SUBCUT SCH (08:09)
--- NOTE | 2021-02-21 10:01 | PCM.DCSUM1 ---
Discharge Summary - Hospital Course Free Text/Narrative:: The patient is a 30-year-old female, on day 7 of service, who was admitted to the medical floor due to acute respiratory failure secondary to COVID-19 pneumonia. During the patient's hospital course she was treated with different protocol with respect to COVID-19 including remdesivir per IV route, dexamethasone per oral route, baricitinib per oral route, and symptomatic treatment with Tessalon Perles and Combivent. The patient was also supplied oxygen while in hospital and her demand has decreased to the point where today all she required was 2 L. She had a walking trial done which further exhibited this, she did not require any oxygen at rest but did require 2 L with ambulation and will be sent home with this amount via [employer] oxygen apparatus. She will also be sent home with a dexamethasone prescription per oral route 6 mg to be taken for 5 days. She will also take her hospital Combivent with her to be used at home. The patient has been advised to return to the hospital if she experiences increasing respiratory difficulty, shortness of breath, fever, chest pain, or palpitations. She has also been educated on the importance of taking her medication at scheduled times. Lastly she has been counseled on following up with her primary care provider. The patient is now stable and can be discharged home. - Discharge Data Discharge Date: 02/21/21 Discharge Disposition: Home, Self-Care 01 Condition: Good - Referral to Home Health Primary Care Physician: PCP None - Patient Summary/Data Consults: Consultations 02/16/21 15:53 Consult to Diabetic Nurse Specialist [CONS] Routine - Patient Instructions Diet: Regular Diet as Tolerated Activity: As Tolerated Showering/Bathing: May Shower Other/Special Instructions: -Return to the hospital if you have increasing respiratory difficulty, shortness of breath, chest pain, palpitations. -Take your medication at scheduled times. -Follow-up with your PCP - Discharge Plan Prescriptions/Med Rec: dexAMETHasone [Dexamethasone] 6 mg PO Q24H 5 Days #8 tablet Home Medications: Home Meds Albuterol/Ipratropium [Combivent Respimat] 0 gm INH QID inhaler 02/21/21 [Rx] dexAMETHasone [Dexamethasone] 6 mg PO Q24H 5 Days #8 tablet 02/21/21 [Rx] Oxygen Therapy Mode: Nasal Cannula Oxygen Flow Rate (L/min): 2 (Use 2 liters of oxygen with ambulation) Patient Handouts: COVID-19 Frequently Asked Questions, COVID-19, COVID-19 Vaccine Information, COVID-19: How to Protect Yourself and Others - [facility], COVID- 19: Quarantine vs. Isolation - [facility] (03/15/2020) Referrals: Martha Triana PA [Physician E Learning Designer] - 03/07/21 10:00 am - Discharge Summary/Plan Comment DC Time >30 min.: Yes Total # of Minutes for Discharge Time: 35 minutes - Review of Systems General: Denies: Fever, Weakness, Fatigue HEENT: Denies: Headaches, Sore Throat Pulmonary: Denies: Shortness of Breath, Cough Cardiovascular: Denies: Chest Pain, Palpitations Gastrointestinal: Denies: Abdominal Pain Genitourinary: Denies: Dysuria - Patient Data Vitals - Most Recent: Last Vital Signs Temp 96.8 F L 02/21/21 07:49 Pulse 81 02/21/21 07:49 Resp 16 02/21/21 07:49 BP 109/61 02/21/21 07:49 Pulse Ox 91 L 02/21/21 07:49 Weight - Most Recent: 258 lb 14.4 oz I&O - Last 24 hours: Intake & Output 02/20/21 02/21/21 02/21/21 22:59 06:59 14:59 Intake Total 800 600 Balance 800 600 Lab Results - Last 24 hrs: Laboratory Results - last 24 hr 02/20/21 02/20/21 02/20/21 Range/Units 10:34 11:41 17:38 POC Glucose 375 H 364 H 243 H (70-99) mg/dL 02/21/21 Range/Units 06:27 POC Glucose 372 H (70-99) mg/dL [place] Results - Last 24 hrs: Microbiology 02/17/21 08:06 Aerobic Blood Culture - Preliminary Blood - Venous - Lab Draw NO GROWTH AFTER 4 DAYS Anaerobic Blood Culture - Preliminary NO GROWTH AFTER 4 DAYS 02/17/21 08:06 Aerobic Blood Culture - Preliminary Blood - Venous NO GROWTH AFTER 4 DAYS Anaerobic Blood Culture - Preliminary NO GROWTH AFTER 4 DAYS 02/15/21 12:29 Aerobic Blood Culture - Final Blood - Venous - Lab Draw NO GROWTH AFTER 5 DAYS Anaerobic Blood Culture - Final NO GROWTH AFTER 5 DAYS 02/15/21 12:02 Aerobic Blood Culture - Final Blood - Venous Anaerobic Blood Culture - Final NO GROWTH AFTER 5 DAYS Med Orders - Current: Current Medications Albuterol/Ipratropium (Albuterol/Ipratropium 4 Gm Inhalation [place]) 0 gm INH QID [facility] Last Admin: 02/21/21 07:52 Dose: 1 puff Documented by: Baricitinib (Baricitinib 2 Mg Tab) 4 mg PO Q24H [facility] Last Admin: 02/20/21 15:24 Dose: 4 mg Documented by: Benzonatate (Benzonatate 100 Mg Cap) 100 mg PO Q6H PRN PRN Reason: Cough Dexamethasone (Dexamethasone 4 Mg Tab) 6 mg PO Q24H [facility] Last Admin: 02/20/21 15:24 Dose: 6 mg Documented by: Dextrose/Water (50% Dextrose In Water 50 Ml Syringe) 50 ml IVPUSH ASDIRECTED PRN PRN Reason: Hypoglycemia Enoxaparin Sodium (Enoxaparin 40 Mg/0.4 Ml Syringe) 40 mg SUBCUT Q12H [facility] Last Admin: 02/20/21 21:15 Dose: 40 mg Documented by: Glucagon (Glucagon,Human Recombinant 1 Mg Vial) 1 mg IM ASDIRECTED PRN PRN Reason: Hypoglycemia Insulin Aspart (Insulin Aspart 100 Units/Ml 3 Ml Pen) 0 unit SUBCUT TIDAC [facility]; Protocol Last Admin: 02/21/21 07:53 Dose: 15 units Documented by: Insulin Aspart (Insulin Aspart 100 Units/Ml 3 Ml Pen) 10 unit SUBCUT TIDAC [facility] Last Admin: 02/21/21 07:54 Dose: 10 units Documented by: Insulin Glargine (Insulin Glargine,Human Rec. Analog 100 Units/Ml 3 Ml Pen) 30 units SUBCUT BEDTIME [facility] Last Admin: 02/20/21 21:17 Dose: 30 units Documented by: Insulin Glargine (Insulin Glargine,Human Rec. Analog 100 Units/Ml 3 Ml Pen) 20 units SUBCUT DAILY [facility] Last Admin: 02/21/21 08:09 Dose: 20 units Documented by: Sodium Chloride (Sodium Chloride 0.9% 10 Ml Syringe) 10 ml FLUSH ASDIRECTED PRN PRN Reason: Keep Vein Open Last Admin: 02/15/21 12:31 Dose: 10 ml Documented by: Sodium Chloride (Sodium Chloride 0.9% 2.5 Ml Syringe) 2.5 ml FLUSH ASDIRECTED PRN PRN Reason: Keep Vein Open Last Admin: 02/15/21 12:31 Dose: 2.5 ml Documented by: Discontinued Medications Dexamethasone (Dexamethasone 10 Mg/Ml Sdv) 6 mg IVPUSH ONETIME ONE Stop: 02/15/21 12:04 Last Admin: 02/15/21 12:30 Dose: 6 mg Documented by: Dextrose/Water (50% Dextrose In Water 50 Ml Syringe) 50 ml IVPUSH ASDIRECTED PRN PRN Reason: Hypoglycemia Dextrose/Water (50% Dextrose In Water 50 Ml Syringe) 50 ml IVPUSH ASDIRECTED PRN PRN Reason: Hypoglycemia Enoxaparin Sodium (Enoxaparin 40 Mg/0.4 Ml Syringe) 40 mg SUBCUT Q24H [facility] Last Admin: 02/19/21 14:52 Dose: 40 mg Documented by: Glucagon (Glucagon,Human Recombinant 1 Mg Vial) 1 mg IM ASDIRECTED PRN PRN Reason: Hypoglycemia Remdesivir 200 mg/ Sodium (Chloride) 250 mls @ 250 mls/hr IV ONETIME ONE Stop: 02/15/21 12:04 Last Admin: 02/15/21 14:02 Dose: Not Given Documented by: Remdesivir 200 mg/ Sodium (Chloride) 250 mls @ 250 mls/hr IV ONETIME ONE Stop: 02/15/21 13:29 Last Admin: 02/15/21 14:01 Dose: 250 mls/hr Documented by: Remdesivir 100 mg/ Sodium (Chloride) 100 mls @ 100 mls/hr IV Q24H [facility] Stop: 02/19/21 12:59 Last Admin: 02/19/21 13:49 Dose: 100 mls/hr Documented by: Levofloxacin/Dextrose 750 mg/ (Premix) 150 mls @ 100 mls/hr IV Q24H [facility] Last Admin: 02/18/21 23:54 Dose: 100 mls/hr Documented by: Vancomycin HCl 2 gm/ Premix 400 mls @ 200 mls/hr IV ONETIME [facility] Last Admin: 02/17/21 02:05 Dose: 200 mls/hr Documented by: Vancomycin HCl 1.75 gm/ Premix 350 mls @ 200 mls/hr IV Q8H [facility] Last Admin: 02/18/21 13:46 Dose: Not Given Documented by: Vancomycin HCl 1.75 gm/ Premix 350 mls @ 200 mls/hr IV Q8H [facility] Last Admin: 02/19/21 04:24 Dose: 200 mls/hr Documented by: Insulin Aspart (Insulin Aspart 100 Units/Ml 3 Ml Pen) 8 unit SUBCUT NOW ONE Stop: 02/15/21 21:51 Last Admin: 02/15/21 21:54 Dose: 8 units Documented by: Insulin Aspart (Insulin Aspart 100 Units/Ml 3 Ml Pen) Confirm Administered Dose 300 unit .ROUTE .STK-MED ONE Stop: 02/15/21 21:44 Last Admin: 02/15/21 22:09 Dose: Not Given Documented by: Insulin Aspart (Insulin Aspart 100 Units/Ml 3 Ml Pen) 4 unit SUBCUT TIDAC [facility] Last Admin: 02/19/21 19:12 Dose: Not Given Documented by: Insulin Glargine (Insulin Glargine,Human Rec. Analog 100 Units/Ml 3 Ml Pen) 7 units SUBCUT BEDTIME [facility] Last Admin: 02/16/21 20:56 Dose: 7 units Documented by: Insulin Glargine (Insulin Glargine,Human Rec. Analog 100 Units/Ml 3 Ml Pen) 12 units SUBCUT BEDTIME [facility] Insulin Glargine (Insulin Glargine,Human Rec. Analog 100 Units/Ml 3 Ml Pen) 18 units SUBCUT BEDTIME [facility] Last Admin: 02/17/21 22:00 Dose: 18 units Documented by: Insulin Glargine (Insulin Glargine,Human Rec. Analog 100 Units/Ml 3 Ml Pen) 24 units SUBCUT BEDTIME [facility] Last Admin: 02/18/21 20:40 Dose: 24 units Documented by: Iopamidol (Iopamidol 755 Mg/Ml 500 Ml Multipack Bottle) 100 ml IVPUSH ONETIME ONE Stop: 02/15/21 15:48 Last Admin: 02/15/21 15:48 Dose: 100 ml Documented by: Ketorolac Tromethamine (Ketorolac 30 Mg/Ml Sdv) 30 mg IVPUSH ONETIME ONE Stop: 02/15/21 11:53 Last Admin: 02/15/21 12:31 Dose: 30 mg Documented by: - Exam General: Reports: Alert, Oriented, Cooperative HEENT: Reports: Mucous Membr. Moist/Thor Neck: Reports: Trachea Midline Lungs: Reports: Clear to Auscultation, Normal Respiratory Effort Cardiovascular: Reports: Regular Rate, Regular Rhythm GI/Abdominal Exam: Normal Bowel Sounds, Soft, Non-Tender
[2021-02-21] MEDS: Enoxaparin 40 MG/0.4 ML Syringe SUBCUT SCH (10:36)
== END 2021-02-21 13:10 | disposition home or self-care (01) | DRG 137 ==
LOC: MW.ED 10:23 → MW.MS 12:29
PROVIDERS: ADMIT Internal Medicine; ATTEND Internal Medicine
PROC: XW033E5 Introduction of Remdesivir Anti-infective into Peripheral Vein, Percutaneous Approach, New Technology Group 5 (ICD-10-PCS; principal; 2021-02-15)
PROC: 3E0DX3Z Introduction of Anti-inflammatory into Mouth and Pharynx, External Approach (ICD-10-PCS; 2021-02-15)
PROC: XW0DXM6 Introduction of Baricitinib into Mouth and Pharynx, External Approach, New Technology Group 6 (ICD-10-PCS; 2021-02-15)
PROC: 5A0955A Assistance with Respiratory Ventilation, Greater than 96 Consecutive Hours, High Flow/Velocity Cannula (ICD-10-PCS; 2021-02-15)
DX: U07.1 COVID-19 (principal); J12.82 Pneumonia due to coronavirus disease 2019; J96.01 Acute respiratory failure with hypoxia; E11.9 Type 2 diabetes mellitus without complications; E66.01 Morbid (severe) obesity due to excess calories; Z68.39 Body mass index [BMI] 39.0-39.9, adult
CPT/HCPCS: 36415; 71045; 71045-26; 71275; 71275-26; 80053; 80202; 81001; 81025; 82947; 83036; 83605; 85025; 85379; 86140; 87040; 87150; 94640; 94664; 99285-25; A9270-GY; J1100; J1650; J1815-GY; J1885; J1956; J3370; J7050; J8540; Q9967